=== PATIENT | female | born 1945 | race Caucasian/White ===

== ENCOUNTER 2017-05-26 12:24 | Inpatient (IN) | payer MEDICARE, MEDICAID ==
[~2017-05-26] VITALS: Ht 165.1 cm; Wt 88.6 kg
[2017-05-26] MEDS ORDERED: ipratropium/albuterol 3ml nebule NEB ONE (12:40)
[2017-05-26] MEDS ORDERED: normal saline 1000ML IV soln IV ONE (12:40)
[2017-05-26 13:18] LABS: BASOPHILS % (AUTO) 0.1 % (0-1); EOSINOPHILS % (AUTO) 0 % (0-6); HEMATOCRIT 38.1 % (35.0-45.0); HEMOGLOBIN 13.1 g/dl (12.0-16.0); LYMPHOCYTES # (AUTO) 1.3 X10'3 (1.1-4.8); LYMPHOCYTES % (AUTO) 11.3 % (21-51); MEAN CORPUSCULAR HEMOGLOBIN 28.7 PG (27.0-31.0); MEAN CORPUSCULAR HGB CONC 34.3 % (33.0-36.5); MEAN CORPUSCULAR VOLUME 83.5 FL (78-98); MONOCYTES # (AUTO) 0.5 X10'3 (0-0.9); MONOCYTES % (AUTO) 4.6 % (2-12); NEUTROPHILS # (AUTO) 9.4 X10'3 (1.8-7.7); PLATELET COUNT 280 X10'3 (140-440); RED BLOOD COUNT 4.56 X10'6 (4.20-5.60); RED CELL DISTRIBUTION WIDTH 13.7 % (11.5-14.5); WHITE BLOOD COUNT 11.2 X10'3 (4.5-11.0)
[2017-05-26] MEDS ORDERED: CefTRIAXone 2gm/NS 100ml IVPB 100 ML IV ONE (13:25)
[2017-05-26] MEDS ORDERED: LORazepam 2 mg/ml vial IV ONE (13:35)
[2017-05-26 13:43] LABS: ALANINE AMINOTRANSFERASE 16 U/L (12-78); ALBUMIN 3.8 G/DL (3.4-5.0); ALKALINE PHOSPHATASE 57 IU/L (46-116); ANION GAP 10 (8-16); ASPARTATE AMINO TRANSFERASE 16 U/L (10-37); BILIRUBIN,TOTAL 0.4 MG/DL (0.1-1.0); BLOOD UREA NITROGEN 14 MG/DL (7-18); BUN/CREATININE RATIO 16.9 (6.6-38.0); CHLORIDE 100 MMOL/L (99-107); CREATININE 0.83 MG/DL (0.40-0.90); GLUCOSE 131 MG/DL (70-104); POTASSIUM 4.1 MMOL/L (3.5-5.1); SODIUM 139 MMOL/L (135-145); TOTAL CARBON DIOXIDE 28.8 MMOL/L (24-32); TOTAL PROTEIN 7.5 G/DL (6.4-8.2); eGFR 68 ML/MIN
[2017-05-26 14:11] LABS: ABG BASE EXCESS -2.8 mmol/L (-2.0-3.0); ABG HCO3 22.5 mmol/L (22.0-26.0); ABG OXYGEN SATURATION 94.7 % (95-98); ABG PCO2 (T) 40.9 mmHg (32.0-45.0); ABG PH (T) 7.358 (7.350-7.450); ABG PO2 (T) 78.5 mmHg (83-108); ALLEN'S TEST Negative; FCOHb 0.2 % (0.5-1.5); FLOW 3 L/min; FMetHb 0.1 % (0.3-1.12); FO2Hb 94.4 % (94-100)
[2017-05-26] MEDS ORDERED: ondansetron/PF 4mg/2ml inj IV PRN (14:25)
[2017-05-26] MEDS ORDERED: magnesium hydroxide 30ml (MOM) UD suspension PO PRN (14:25)
[2017-05-26] MEDS ORDERED: acetaminophen 325mg tablet PO PRN (14:25)
[2017-05-26] MEDS ORDERED: mag hydrox/Alum hydrox/simeth 30ml oral suspension PO PRN (14:25)
[2017-05-26 17:00] VITALS: BP 146/71
[2017-05-26] MEDS ORDERED: LORazepam 2 mg/ml vial IV PRN (17:20)
[2017-05-26 18:04] LABS: HEMOGLOBIN A1C 5.5 % (4.5-6.2)
[2017-05-26 19:00] VITALS: BP 142/93
[2017-05-26] MEDS: ipratropium/albuterol 3ml nebule NEB SCH ×2 (20:27→23:31)
[2017-05-26] MEDS ORDERED: ATOR10TA PO (20:29)
[2017-05-26] MEDS ORDERED: METF500T PO (20:29)
[2017-05-26] MEDS ORDERED: SERT50TA PO (20:29)
[2017-05-26] MEDS ORDERED: SERT25TA PO (20:29)
[2017-05-26] MEDS ORDERED: LORA10TA65 PO (20:29)
[2017-05-26] MEDS ORDERED: AMLO5TAB4 PO (20:29)
[2017-05-26] MEDS ORDERED: ENAL5TAB77 PO (20:29)
[2017-05-26] MEDS: heparin, porcine 5000 units/ml vial SQ SCH (21:25)
[2017-05-26] MEDS: methylPREDNISolone sod succ 125mg/2ml vial IV SCH (21:25)
[2017-05-26 23:00] VITALS: BP 146/63
[2017-05-27] MEDS: methylPREDNISolone sod succ 125mg/2ml vial IV SCH ×4 (01:51→19:18)
[2017-05-27 03:00] VITALS: BP 147/76
[2017-05-27] MEDS: ipratropium/albuterol 3ml nebule NEB SCH ×6 (03:30→23:34)
[2017-05-27 06:00] VITALS: BP 139/70
[2017-05-27 07:08] LABS: BASOPHILS % (AUTO) 0.1 % (0-1); EOSINOPHILS % (AUTO) 0 % (0-6); HEMATOCRIT 34.7 % (35.0-45.0); HEMOGLOBIN 11.8 g/dl (12.0-16.0); LYMPHOCYTES # (AUTO) 0.5 X10'3 (1.1-4.8); LYMPHOCYTES % (AUTO) 7.9 % (21-51); MEAN CORPUSCULAR HEMOGLOBIN 28.6 PG (27.0-31.0); MEAN CORPUSCULAR HGB CONC 33.9 % (33.0-36.5); MEAN CORPUSCULAR VOLUME 84.2 FL (78-98); MEAN PLATELET VOLUME 7.5 FL (7.4-10.4); MONOCYTES % (AUTO) 0.4 % (2-12); NEUTROPHILS # (AUTO) 5.9 X10'3 (1.8-7.7); NEUTROPHILS % (AUTO) 91.6 % (42-75); PLATELET COUNT 252 X10'3 (140-440); RED BLOOD COUNT 4.12 X10'6 (4.20-5.60); RED CELL DISTRIBUTION WIDTH 13.5 % (11.5-14.5); WHITE BLOOD COUNT 6.4 X10'3 (4.5-11.0)
[2017-05-27 07:13] LABS: ALBUMIN 3.2 G/DL (3.4-5.0); ANION GAP 12 (8-16); BLOOD UREA NITROGEN 11 MG/DL (7-18); BUN/CREATININE RATIO 14.9 (6.6-38.0); CALCIUM 8.3 MG/DL (8.5-10.1); CHLORIDE 104 MMOL/L (99-107); CREATININE 0.74 MG/DL (0.40-0.90); GLUCOSE 208 MG/DL (70-104); POTASSIUM 3.7 MMOL/L (3.5-5.1); SODIUM 142 MMOL/L (135-145); TOTAL CARBON DIOXIDE 26.2 MMOL/L (24-32); eGFR 78 ML/MIN
[2017-05-27] MEDS ORDERED: dextrose 50%-water 50ml dispensing syringe IV PRN (07:55)
[2017-05-27] MEDS ORDERED: dextrose ORAL solution 15 GM/59 ML bottle PO PRN ×2 (07:55)
[2017-05-27] MEDS ORDERED: glucagon, human recombinant 1mg kit SUBCUT PRN (07:55)
[2017-05-27] MEDS ORDERED: MESSAGE TO PHARMACY PO ONE (07:55)
[2017-05-27] MEDS: heparin, porcine 5000 units/ml vial SQ SCH ×2 (08:11→19:19)
[2017-05-27] MEDS: levoFLOXACIN-Levaquin 500mg/D5 100 ML IV SCH (08:32)
[2017-05-27] MEDS: insulin Lispro (HumaLOG) vial - multi-dose SQ SCH ×3 (08:52→19:11)
[2017-05-27 11:00] VITALS: BP 135/53
[2017-05-27] MEDS: sertraline 50mg tablet PO SCH (12:44)
[2017-05-27] MEDS: metFORMIN 500mg tablet PO SCH ×2 (12:44→17:59)
[2017-05-27] MEDS: HYDROcodone/acetaminophen 5mg/325mg tablet PO PRN (13:15)
[2017-05-27 15:00] VITALS: BP 133/76
[2017-05-27] MEDS: lactobacillus rhamnosus 10,000 MMU CELLS/CAPSULE PO SCH (17:18)
[2017-05-27 19:00] VITALS: BP 145/90
[2017-05-27 23:00] VITALS: BP 143/65
[2017-05-27] MEDS: insulin glargine (Lantus) pen - multi-dose SQ SCH (23:27)
[2017-05-28] MEDS: methylPREDNISolone sod succ 125mg/2ml vial IV SCH ×4 (02:31→21:37)
[2017-05-28 03:00] VITALS: BP 147/78
[2017-05-28] MEDS: ipratropium/albuterol 3ml nebule NEB SCH ×6 (03:21→22:46)
[2017-05-28 05:34] LABS: BASOPHILS % (AUTO) 0.1 % (0-1); EOSINOPHILS # (AUTO) 0.2 X10'3 (0-0.9); EOSINOPHILS % (AUTO) 1.1 % (0-6); HEMATOCRIT 36.8 % (35.0-45.0); HEMOGLOBIN 12.8 g/dl (12.0-16.0); LYMPHOCYTES # (AUTO) 0.7 X10'3 (1.1-4.8); LYMPHOCYTES % (AUTO) 5.3 % (21-51); MEAN CORPUSCULAR HGB CONC 34.7 % (33.0-36.5); MEAN CORPUSCULAR VOLUME 83.7 FL (78-98); MEAN PLATELET VOLUME 7.6 FL (7.4-10.4); MONOCYTES # (AUTO) 0.4 X10'3 (0-0.9); MONOCYTES % (AUTO) 3.2 % (2-12); NEUTROPHILS # (AUTO) 12.6 X10'3 (1.8-7.7); NEUTROPHILS % (AUTO) 90.3 % (42-75); PLATELET COUNT 278 X10'3 (140-440); RED CELL DISTRIBUTION WIDTH 13.6 % (11.5-14.5); WHITE BLOOD COUNT 13.9 X10'3 (4.5-11.0)
[2017-05-28 05:43] LABS: ALBUMIN 3.3 G/DL (3.4-5.0); ANION GAP 10 (8-16); BLOOD UREA NITROGEN 15 MG/DL (7-18); BUN/CREATININE RATIO 20.3 (6.6-38.0); CALCIUM 8.8 MG/DL (8.5-10.1); CHLORIDE 103 MMOL/L (99-107); CREATININE 0.74 MG/DL (0.40-0.90); GLUCOSE 171 MG/DL (70-104); POTASSIUM 3.7 MMOL/L (3.5-5.1); SODIUM 142 MMOL/L (135-145); TOTAL CARBON DIOXIDE 29.2 MMOL/L (24-32); eGFR 78 ML/MIN
[2017-05-28 06:00] VITALS: BP 145/63
[2017-05-28] MEDS: heparin, porcine 5000 units/ml vial SQ SCH ×2 (07:50→20:00)
[2017-05-28] MEDS: sertraline 50mg tablet PO SCH (07:51)
[2017-05-28] MEDS: levoFLOXACIN-Levaquin 500mg/D5 100 ML IV SCH (07:51)
[2017-05-28] MEDS: lactobacillus rhamnosus 10,000 MMU CELLS/CAPSULE PO SCH ×2 (07:51→17:08)
[2017-05-28] MEDS: atorvastatin 10mg tablet PO SCH (07:51)
[2017-05-28] MEDS: lisinopril 5mg tablet PO SCH (07:51)
[2017-05-28] MEDS: amLODIPine 5mg tablet PO SCH (07:51)
[2017-05-28] MEDS: loratadine 10mg tablet PO SCH (07:53)
[2017-05-28] MEDS: metFORMIN 500mg tablet PO SCH ×3 (08:00→17:48)
[2017-05-28] MEDS ORDERED: sertraline 50mg tablet PO SCH (08:00)
[2017-05-28] MEDS: insulin Lispro (HumaLOG) vial - multi-dose SQ SCH ×3 (08:38→21:52)
[2017-05-28 11:00] VITALS: BP 133/71
[2017-05-28] MEDS: HYDROcodone/acetaminophen 5mg/325mg tablet PO PRN ×2 (14:18→21:58)
[2017-05-28 15:00] VITALS: BP 145/71
[2017-05-28 19:00] VITALS: BP 150/72
[2017-05-28] MEDS: insulin glargine (Lantus) pen - multi-dose SQ SCH (21:51)
[2017-05-28 23:00] VITALS: BP 131/76
[2017-05-29] MEDS: Melatonin 3mg tablet PO PRN ×2 (01:59→22:21)
[2017-05-29] MEDS: methylPREDNISolone sod succ 125mg/2ml vial IV SCH ×4 (01:59→19:31)
[2017-05-29 03:00] VITALS: BP 137/65
[2017-05-29] MEDS: ipratropium/albuterol 3ml nebule NEB SCH ×6 (03:24→23:13)
[2017-05-29 05:21] LABS: BASOPHILS % (AUTO) 0 % (0-1); EOSINOPHILS % (AUTO) 0 % (0-6); HEMATOCRIT 35.4 % (35.0-45.0); HEMOGLOBIN 12.3 g/dl (12.0-16.0); LYMPHOCYTES # (AUTO) 0.6 X10'3 (1.1-4.8); LYMPHOCYTES % (AUTO) 5.9 % (21-51); MEAN CORPUSCULAR HGB CONC 34.7 % (33.0-36.5); MEAN CORPUSCULAR VOLUME 83.7 FL (78-98); MEAN PLATELET VOLUME 7.7 FL (7.4-10.4); MONOCYTES % (AUTO) 0.4 % (2-12); NEUTROPHILS # (AUTO) 9.6 X10'3 (1.8-7.7); NEUTROPHILS % (AUTO) 93.7 % (42-75); PLATELET COUNT 307 X10'3 (140-440); RED BLOOD COUNT 4.23 X10'6 (4.20-5.60); RED CELL DISTRIBUTION WIDTH 13.5 % (11.5-14.5); WHITE BLOOD COUNT 10.2 X10'3 (4.5-11.0)
[2017-05-29 05:35] LABS: ALBUMIN 3.1 G/DL (3.4-5.0); ANION GAP 11 (8-16); BLOOD UREA NITROGEN 19 MG/DL (7-18); BUN/CREATININE RATIO 23.2 (6.6-38.0); CALCIUM 8.5 MG/DL (8.5-10.1); CHLORIDE 102 MMOL/L (99-107); CREATININE 0.82 MG/DL (0.40-0.90); GLUCOSE 217 MG/DL (70-104); POTASSIUM 3.3 MMOL/L (3.5-5.1); SODIUM 141 MMOL/L (135-145); TOTAL CARBON DIOXIDE 27.8 MMOL/L (24-32); eGFR 69 ML/MIN
[2017-05-29 06:00] VITALS: BP 126/55
[2017-05-29] MEDS: lactobacillus rhamnosus 10,000 MMU CELLS/CAPSULE PO SCH ×2 (07:47→16:53)
[2017-05-29] MEDS: amLODIPine 5mg tablet PO SCH (07:47)
[2017-05-29] MEDS: atorvastatin 10mg tablet PO SCH (07:47)
[2017-05-29] MEDS: sertraline 50mg tablet PO SCH (07:48)
[2017-05-29] MEDS: metFORMIN 500mg tablet PO SCH (07:48)
[2017-05-29] MEDS: lisinopril 5mg tablet PO SCH (07:48)
[2017-05-29] MEDS: loratadine 10mg tablet PO SCH (07:48)
[2017-05-29] MEDS: HYDROcodone/acetaminophen 5mg/325mg tablet PO PRN ×2 (07:50→17:06)
[2017-05-29] MEDS: levoFLOXACIN-Levaquin 500mg/D5 100 ML IV SCH (07:50)
[2017-05-29] MEDS: heparin, porcine 5000 units/ml vial SQ SCH ×2 (07:51→19:30)
[2017-05-29 11:30] VITALS: BP 124/53
[2017-05-29] MEDS: insulin Lispro (HumaLOG) vial - multi-dose SQ SCH ×2 (14:11→19:34)
[2017-05-29 15:00] VITALS: BP 141/99
[2017-05-29 19:00] VITALS: BP 103/64
[2017-05-29] MEDS: guaiFENesin ER 600mg tablet PO SCH (19:30)
[2017-05-29] MEDS: furosemide 20 MG/2 ML vial IV SCH (19:31)
[2017-05-29 22:00] VITALS: BP 138/72
[2017-05-29] MEDS: insulin glargine (Lantus) pen - multi-dose SQ SCH (22:20)
[2017-05-30] VITALS (7 sets, daily range): BP systolic 104–151; BP diastolic 45–84
[2017-05-30] MEDS: methylPREDNISolone sod succ 125mg/2ml vial IV SCH ×2 (01:48→08:03)
[2017-05-30] MEDS: ipratropium/albuterol 3ml nebule NEB SCH ×6 (03:09→22:55)
[2017-05-30 05:56] LABS: BASOPHILS # (AUTO) 0.1 X10'3 (0-0.2); BASOPHILS % (AUTO) 1.4 % (0-1); EOSINOPHILS % (AUTO) 0.1 % (0-6); HEMATOCRIT 37.8 % (35.0-45.0); HEMOGLOBIN 12.9 g/dl (12.0-16.0); LYMPHOCYTES # (AUTO) 0.7 X10'3 (1.1-4.8); LYMPHOCYTES % (AUTO) 7.4 % (21-51); MEAN CORPUSCULAR HEMOGLOBIN 28.6 PG (27.0-31.0); MEAN CORPUSCULAR HGB CONC 34.1 % (33.0-36.5); MEAN PLATELET VOLUME 7.9 FL (7.4-10.4); MONOCYTES # (AUTO) 0.4 X10'3 (0-0.9); MONOCYTES % (AUTO) 4.4 % (2-12); NEUTROPHILS # (AUTO) 8.4 X10'3 (1.8-7.7); NEUTROPHILS % (AUTO) 86.7 % (42-75); PLATELET COUNT 328 X10'3 (140-440); RED CELL DISTRIBUTION WIDTH 13.3 % (11.5-14.5); WHITE BLOOD COUNT 9.7 X10'3 (4.5-11.0)
[2017-05-30 06:35] LABS: ALBUMIN 3.1 G/DL (3.4-5.0); ANION GAP 11 (8-16); BLOOD UREA NITROGEN 26 MG/DL (7-18); BUN/CREATININE RATIO 29.5 (6.6-38.0); CALCIUM 8.8 MG/DL (8.5-10.1); CHLORIDE 102 MMOL/L (99-107); CREATININE 0.88 MG/DL (0.40-0.90); GLUCOSE 151 MG/DL (70-104); POTASSIUM 3.2 MMOL/L (3.5-5.1); SODIUM 142 MMOL/L (135-145); TOTAL CARBON DIOXIDE 28.8 MMOL/L (24-32); eGFR 64 ML/MIN
[2017-05-30] MEDS: loratadine 10mg tablet PO SCH (08:01)
[2017-05-30] MEDS: guaiFENesin ER 600mg tablet PO SCH (08:01)
[2017-05-30] MEDS: amLODIPine 5mg tablet PO SCH (08:01)
[2017-05-30] MEDS: atorvastatin 10mg tablet PO SCH (08:01)
[2017-05-30] MEDS: lactobacillus rhamnosus 10,000 MMU CELLS/CAPSULE PO SCH ×2 (08:02→17:15)
[2017-05-30] MEDS: sertraline 50mg tablet PO SCH (08:02)
[2017-05-30] MEDS: furosemide 20 MG/2 ML vial IV SCH (08:02)
[2017-05-30] MEDS: heparin, porcine 5000 units/ml vial SQ SCH ×2 (08:04→19:22)
[2017-05-30] MEDS: insulin Lispro (HumaLOG) vial - multi-dose SQ SCH ×3 (08:39→18:48)
[2017-05-30] MEDS: levoFLOXACIN 500mg tablet PO SCH (12:21)
[2017-05-30] MEDS ORDERED: metoprolol tartrate 1mg/ml inj IV PRN (16:35)
[2017-05-30] MEDS ORDERED: morphine 4 MG/ML inj SYRINge IV ONE (16:35)
[2017-05-30] MEDS ORDERED: diltiazem 5mg/ml 5ml inj. IV ONE (16:35)
[2017-05-30] MEDS ORDERED: methylPREDNISolone sod succ 125mg/2ml vial IV ONE (18:05)
[2017-05-30] MEDS: guaiFENesin/codeine phos 10ml UD oral syrup PO PRN ×2 (18:49→22:59)
[2017-05-30] MEDS: HYDROcodone/acetaminophen 5mg/325mg tablet PO PRN (19:27)
[2017-05-30] MEDS: insulin glargine (Lantus) pen - multi-dose SQ SCH (21:08)
[2017-05-30] MEDS: Melatonin 3mg tablet PO PRN (22:59)
[2017-05-31 02:00] VITALS: BP 131/67
[2017-05-31] MEDS: ipratropium/albuterol 3ml nebule NEB SCH ×6 (03:24→23:11)
[2017-05-31 06:00] VITALS: BP 131/70
[2017-05-31 06:04] LABS: BASOPHILS # (AUTO) 0.1 X10'3 (0-0.2); BASOPHILS % (AUTO) 0.7 % (0-1); EOSINOPHILS % (AUTO) 0.1 % (0-6); HEMATOCRIT 36.8 % (35.0-45.0); HEMOGLOBIN 12.8 g/dl (12.0-16.0); LYMPHOCYTES # (AUTO) 0.9 X10'3 (1.1-4.8); LYMPHOCYTES % (AUTO) 8.9 % (21-51); MEAN CORPUSCULAR HEMOGLOBIN 29.1 PG (27.0-31.0); MEAN CORPUSCULAR HGB CONC 34.7 % (33.0-36.5); MEAN CORPUSCULAR VOLUME 83.7 FL (78-98); MEAN PLATELET VOLUME 7.9 FL (7.4-10.4); MONOCYTES # (AUTO) 0.8 X10'3 (0-0.9); MONOCYTES % (AUTO) 7.4 % (2-12); NEUTROPHILS # (AUTO) 8.7 X10'3 (1.8-7.7); NEUTROPHILS % (AUTO) 82.9 % (42-75); PLATELET COUNT 290 X10'3 (140-440); RED BLOOD COUNT 4.39 X10'6 (4.20-5.60); RED CELL DISTRIBUTION WIDTH 13.4 % (11.5-14.5); WHITE BLOOD COUNT 10.5 X10'3 (4.5-11.0)
[2017-05-31 06:14] LABS: ANION GAP 11 (8-16); BLOOD UREA NITROGEN 29 MG/DL (7-18); BUN/CREATININE RATIO 29.9 (6.6-38.0); CALCIUM 8.6 MG/DL (8.5-10.1); CHLORIDE 101 MMOL/L (99-107); CREATININE 0.97 MG/DL (0.40-0.90); GLUCOSE 176 MG/DL (70-104); POTASSIUM 3.7 MMOL/L (3.5-5.1); SODIUM 140 MMOL/L (135-145); TOTAL CARBON DIOXIDE 28.3 MMOL/L (24-32); eGFR 57 ML/MIN
[2017-05-31] MEDS ORDERED: methylPREDNISolone sod succ 125mg/2ml vial IV ONE (07:50)
[2017-05-31] MEDS ORDERED: predniSONE 20 mg tablet PO SCH (08:00)
[2017-05-31] MEDS: lactobacillus rhamnosus 10,000 MMU CELLS/CAPSULE PO SCH ×2 (08:28→17:57)
[2017-05-31] MEDS: atorvastatin 10mg tablet PO SCH (08:29)
[2017-05-31] MEDS: furosemide 40mg tablet PO SCH (08:29)
[2017-05-31] MEDS: amLODIPine 5mg tablet PO SCH (08:29)
[2017-05-31] MEDS: loratadine 10mg tablet PO SCH (08:29)
[2017-05-31] MEDS: sertraline 50mg tablet PO SCH (08:30)
[2017-05-31] MEDS: HYDROcodone/acetaminophen 5mg/325mg tablet PO PRN (08:30)
[2017-05-31] MEDS: heparin, porcine 5000 units/ml vial SQ SCH ×2 (08:30→19:59)
[2017-05-31] MEDS: guaiFENesin/codeine phos 10ml UD oral syrup PO PRN ×2 (08:31→22:48)
[2017-05-31] MEDS: insulin Lispro (HumaLOG) vial - multi-dose SQ SCH ×3 (08:42→19:50)
[2017-05-31] MEDS ORDERED: ALPRAZolam 0.25mg tablet PO PRN (08:50)
[2017-05-31] MEDS ORDERED: acetylcysteine 200 MG/ml 4ml vial INH ONE ×2 (08:50→10:40)
[2017-05-31] MEDS: morphine 4 MG/ML inj SYRINge IV PRN ×3 (09:31→23:08)
[2017-05-31 11:00] VITALS: BP 128/55
[2017-05-31] MEDS: levoFLOXACIN 500mg tablet PO SCH (11:19)
[2017-05-31] MEDS: methylPREDNISolone sod succ/PF 40mg inj. IV SCH ×2 (13:36→19:57)
[2017-05-31 15:00] VITALS: BP 127/59
[2017-05-31 18:00] VITALS: BP 126/55
[2017-05-31 22:00] VITALS: BP 152/84
[2017-05-31] MEDS: insulin glargine (Lantus) pen - multi-dose SQ SCH (23:07)
[2017-05-31] MEDS: Melatonin 3mg tablet PO PRN (23:07)
[2017-06-01 02:00] VITALS: BP 139/79
[2017-06-01] MEDS: methylPREDNISolone sod succ/PF 40mg inj. IV SCH ×4 (02:54→19:20)
[2017-06-01] MEDS: ipratropium/albuterol 3ml nebule NEB SCH ×6 (03:15→23:22)
[2017-06-01 06:00] VITALS: BP 144/79
[2017-06-01] MEDS: lactobacillus rhamnosus 10,000 MMU CELLS/CAPSULE PO SCH ×2 (08:25→17:22)
[2017-06-01] MEDS: atorvastatin 10mg tablet PO SCH (08:25)
[2017-06-01] MEDS: loratadine 10mg tablet PO SCH (08:27)
[2017-06-01] MEDS: amLODIPine 5mg tablet PO SCH (08:27)
[2017-06-01] MEDS: heparin, porcine 5000 units/ml vial SQ SCH ×2 (08:27→19:21)
[2017-06-01] MEDS: furosemide 40mg tablet PO SCH (08:28)
[2017-06-01] MEDS: insulin Lispro (HumaLOG) vial - multi-dose SQ SCH ×3 (08:33→21:44)
[2017-06-01] MEDS: sertraline 50mg tablet PO SCH (08:34)
[2017-06-01 09:14] LABS: BASOPHILS # (AUTO) 0.1 X10'3 (0-0.2); BASOPHILS % (AUTO) 0.7 % (0-1); EOSINOPHILS % (AUTO) 0 % (0-6); HEMATOCRIT 38.1 % (35.0-45.0); HEMOGLOBIN 12.7 g/dl (12.0-16.0); LYMPHOCYTES # (AUTO) 0.8 X10'3 (1.1-4.8); LYMPHOCYTES % (AUTO) 6.4 % (21-51); MEAN CORPUSCULAR HEMOGLOBIN 28.5 PG (27.0-31.0); MEAN CORPUSCULAR HGB CONC 33.5 % (33.0-36.5); MEAN CORPUSCULAR VOLUME 85.1 FL (78-98); MONOCYTES # (AUTO) 0.6 X10'3 (0-0.9); MONOCYTES % (AUTO) 4.8 % (2-12); NEUTROPHILS # (AUTO) 11.3 X10'3 (1.8-7.7); NEUTROPHILS % (AUTO) 88.1 % (42-75); PLATELET COUNT 363 X10'3 (140-440); RED BLOOD COUNT 4.47 X10'6 (4.20-5.60); RED CELL DISTRIBUTION WIDTH 13.5 % (11.5-14.5); WHITE BLOOD COUNT 12.8 X10'3 (4.5-11.0)
[2017-06-01 09:22] LABS: ALBUMIN 2.9 G/DL (3.4-5.0); ANION GAP 10 (8-16); BLOOD UREA NITROGEN 31 MG/DL (7-18); BUN/CREATININE RATIO 28.4 (6.6-38.0); CALCIUM 8.4 MG/DL (8.5-10.1); CHLORIDE 99 MMOL/L (99-107); CREATININE 1.09 MG/DL (0.40-0.90); GLUCOSE 290 MG/DL (70-104); POTASSIUM 4.3 MMOL/L (3.5-5.1); SODIUM 137 MMOL/L (135-145); TOTAL CARBON DIOXIDE 28.3 MMOL/L (24-32); eGFR 50 ML/MIN
[2017-06-01] MEDS: morphine 4 MG/ML inj SYRINge IV PRN ×2 (10:27→19:21)
[2017-06-01 11:00] VITALS: BP 123/79
[2017-06-01] MEDS: levoFLOXACIN 500mg tablet PO SCH (12:45)
[2017-06-01 15:00] VITALS: BP 139/64
[2017-06-01 18:00] VITALS: BP 143/75
[2017-06-01] MEDS: insulin glargine (Lantus) pen - multi-dose SQ SCH (21:45)
[2017-06-01 22:00] VITALS: BP 157/80
[2017-06-01] MEDS: guaiFENesin/codeine phos 10ml UD oral syrup PO PRN (23:06)
[2017-06-01] MEDS: Melatonin 3mg tablet PO PRN (23:06)
[2017-06-01] MEDS: HYDROcodone/acetaminophen 5mg/325mg tablet PO PRN (23:07)
[2017-06-02 02:00] VITALS: BP 143/80
[2017-06-02] MEDS: methylPREDNISolone sod succ/PF 40mg inj. IV SCH ×4 (02:22→20:13)
[2017-06-02] MEDS: ipratropium/albuterol 3ml nebule NEB SCH ×6 (02:46→23:24)
[2017-06-02 05:48] LABS: BASOPHILS # (AUTO) 0.1 X10'3 (0-0.2); BASOPHILS % (AUTO) 0.4 % (0-1); EOSINOPHILS % (AUTO) 0 % (0-6); HEMATOCRIT 37.6 % (35.0-45.0); HEMOGLOBIN 12.7 g/dl (12.0-16.0); LYMPHOCYTES # (AUTO) 0.9 X10'3 (1.1-4.8); MEAN CORPUSCULAR HEMOGLOBIN 28.6 PG (27.0-31.0); MEAN CORPUSCULAR HGB CONC 33.7 % (33.0-36.5); MEAN CORPUSCULAR VOLUME 84.7 FL (78-98); MEAN PLATELET VOLUME 7.4 FL (7.4-10.4); MONOCYTES # (AUTO) 0.6 X10'3 (0-0.9); MONOCYTES % (AUTO) 4.2 % (2-12); NEUTROPHILS # (AUTO) 13.4 X10'3 (1.8-7.7); NEUTROPHILS % (AUTO) 89.4 % (42-75); PLATELET COUNT 377 X10'3 (140-440); RED BLOOD COUNT 4.44 X10'6 (4.20-5.60); RED CELL DISTRIBUTION WIDTH 13.4 % (11.5-14.5); WHITE BLOOD COUNT 14.9 X10'3 (4.5-11.0)
[2017-06-02 06:00] VITALS: BP 152/56
[2017-06-02 06:01] LABS: ANION GAP 8 (8-16); BLOOD UREA NITROGEN 26 MG/DL (7-18); BUN/CREATININE RATIO 32.1 (6.6-38.0); CALCIUM 8.5 MG/DL (8.5-10.1); CHLORIDE 102 MMOL/L (99-107); CREATININE 0.81 MG/DL (0.40-0.90); GLUCOSE 108 MG/DL (70-104); POTASSIUM 3.9 MMOL/L (3.5-5.1); SODIUM 141 MMOL/L (135-145); TOTAL CARBON DIOXIDE 31.4 MMOL/L (24-32); eGFR 70 ML/MIN
[2017-06-02] MEDS: atorvastatin 10mg tablet PO SCH (07:28)
[2017-06-02] MEDS: sertraline 50mg tablet PO SCH (07:28)
[2017-06-02] MEDS: loratadine 10mg tablet PO SCH (07:28)
[2017-06-02] MEDS: lactobacillus rhamnosus 10,000 MMU CELLS/CAPSULE PO SCH ×2 (07:28→16:21)
[2017-06-02] MEDS: heparin, porcine 5000 units/ml vial SQ SCH ×2 (07:28→20:17)
[2017-06-02] MEDS: amLODIPine 5mg tablet PO SCH (07:28)
[2017-06-02] MEDS: furosemide 40mg tablet PO SCH ×3 (07:28→20:17)
[2017-06-02] MEDS: HYDROcodone/acetaminophen 5mg/325mg tablet PO PRN ×4 (07:31→21:22)
[2017-06-02 08:17] LABS: TROPONIN I < 0.04 NG/ML (0.0-0.05)
[2017-06-02] MEDS: insulin Lispro (HumaLOG) vial - multi-dose SQ SCH ×3 (08:24→19:17)
[2017-06-02] MEDS: levoFLOXACIN 500mg tablet PO SCH (11:30)
[2017-06-02 11:55] VITALS: BP 118/88
[2017-06-02 15:00] VITALS: BP 118/70
[2017-06-02 18:00] VITALS: BP 119/59
[2017-06-02] MEDS: Melatonin 3mg tablet PO PRN (21:22)
[2017-06-02] MEDS: guaiFENesin/codeine phos 10ml UD oral syrup PO PRN (21:22)
[2017-06-02] MEDS: insulin glargine (Lantus) pen - multi-dose SQ SCH (21:30)
[2017-06-02 22:00] VITALS: BP 163/76
[2017-06-03] VITALS (7 sets, daily range): BP systolic 69–145; BP diastolic 50–76
[2017-06-03] MEDS: methylPREDNISolone sod succ/PF 40mg inj. IV SCH ×3 (01:56→14:02)
[2017-06-03] MEDS: guaiFENesin/codeine phos 10ml UD oral syrup PO PRN ×2 (01:56→16:08)
[2017-06-03] MEDS: ipratropium/albuterol 3ml nebule NEB SCH ×4 (02:55→14:03)
[2017-06-03] MEDS: morphine 4 MG/ML inj SYRINge IV PRN ×2 (03:15→16:10)
[2017-06-03 03:38] LABS: BASOPHILS % (AUTO) 0.2 % (0-1); EOSINOPHILS # (AUTO) 0.3 X10'3 (0-0.9); EOSINOPHILS % (AUTO) 1.6 % (0-6); HEMATOCRIT 38.9 % (35.0-45.0); HEMOGLOBIN 13.4 g/dl (12.0-16.0); LYMPHOCYTES # (AUTO) 0.9 X10'3 (1.1-4.8); LYMPHOCYTES % (AUTO) 5.4 % (21-51); MEAN CORPUSCULAR HEMOGLOBIN 29.1 PG (27.0-31.0); MEAN CORPUSCULAR HGB CONC 34.5 % (33.0-36.5); MEAN CORPUSCULAR VOLUME 84.3 FL (78-98); MEAN PLATELET VOLUME 7.3 FL (7.4-10.4); MONOCYTES # (AUTO) 0.7 X10'3 (0-0.9); MONOCYTES % (AUTO) 4.5 % (2-12); NEUTROPHILS # (AUTO) 14.1 X10'3 (1.8-7.7); NEUTROPHILS % (AUTO) 88.3 % (42-75); PLATELET COUNT 384 X10'3 (140-440); RED BLOOD COUNT 4.61 X10'6 (4.20-5.60); RED CELL DISTRIBUTION WIDTH 13.7 % (11.5-14.5); WHITE BLOOD COUNT 15.9 X10'3 (4.5-11.0)
[2017-06-03 03:58] LABS: ANION GAP 9 (8-16); BLOOD UREA NITROGEN 33 MG/DL (7-18); CALCIUM 8.3 MG/DL (8.5-10.1); CHLORIDE 99 MMOL/L (99-107); CREATININE 1.03 MG/DL (0.40-0.90); GLUCOSE 152 MG/DL (70-104); POTASSIUM 3.6 MMOL/L (3.5-5.1); SODIUM 140 MMOL/L (135-145); TOTAL CARBON DIOXIDE 32.5 MMOL/L (24-32); TROPONIN I < 0.04 NG/ML (0.0-0.05); eGFR 53 ML/MIN
[2017-06-03] MEDS: insulin Lispro (HumaLOG) vial - multi-dose SQ SCH ×3 (08:40→19:26)
[2017-06-03] MEDS: atorvastatin 10mg tablet PO SCH (08:41)
[2017-06-03] MEDS: amLODIPine 5mg tablet PO SCH (08:41)
[2017-06-03] MEDS: lactobacillus rhamnosus 10,000 MMU CELLS/CAPSULE PO SCH ×2 (08:42→19:17)
[2017-06-03] MEDS: sertraline 50mg tablet PO SCH (08:42)
[2017-06-03] MEDS: furosemide 40mg tablet PO SCH ×2 (08:42→19:15)
[2017-06-03] MEDS: heparin, porcine 5000 units/ml vial SQ SCH ×2 (08:42→19:16)
[2017-06-03] MEDS: loratadine 10mg tablet PO SCH (08:42)
[2017-06-03] MEDS: HYDROcodone/acetaminophen 5mg/325mg tablet PO PRN ×3 (09:03→23:46)
[2017-06-03] MEDS: levoFLOXACIN 500mg tablet PO SCH (11:42)
[2017-06-03] MEDS ORDERED: furosemide 40mg/4ml inj IV ONE (18:30)
[2017-06-03] MEDS: guaiFENesin ER 600mg tablet PO SCH (19:18)
[2017-06-03] MEDS: ipratropium/albuterol 3ml nebule NEB PRN (20:06)
[2017-06-03] MEDS: insulin glargine (Lantus) pen - multi-dose SQ SCH (21:00)
[2017-06-03] MEDS: Melatonin 3mg tablet PO PRN (23:45)
[2017-06-04] MEDS: ipratropium/albuterol 3ml nebule NEB PRN ×2 (02:31→21:10)
[2017-06-04 03:00] VITALS: BP 154/61
[2017-06-04 05:52] LABS: BASOPHILS % (AUTO) 0.2 % (0-1); EOSINOPHILS # (AUTO) 0.3 X10'3 (0-0.9); EOSINOPHILS % (AUTO) 1.8 % (0-6); HEMOGLOBIN 13.4 g/dl (12.0-16.0); LYMPHOCYTES # (AUTO) 1.4 X10'3 (1.1-4.8); LYMPHOCYTES % (AUTO) 9.1 % (21-51); MEAN CORPUSCULAR HEMOGLOBIN 28.9 PG (27.0-31.0); MEAN CORPUSCULAR HGB CONC 34.3 % (33.0-36.5); MEAN CORPUSCULAR VOLUME 84.3 FL (78-98); MEAN PLATELET VOLUME 7.6 FL (7.4-10.4); MONOCYTES # (AUTO) 1.3 X10'3 (0-0.9); MONOCYTES % (AUTO) 8.4 % (2-12); NEUTROPHILS # (AUTO) 12.4 X10'3 (1.8-7.7); NEUTROPHILS % (AUTO) 80.5 % (42-75); PLATELET COUNT 353 X10'3 (140-440); RED BLOOD COUNT 4.62 X10'6 (4.20-5.60); RED CELL DISTRIBUTION WIDTH 13.6 % (11.5-14.5); WHITE BLOOD COUNT 15.4 X10'3 (4.5-11.0)
[2017-06-04 06:00] VITALS: BP 140/69
[2017-06-04 06:05] LABS: ALBUMIN 2.9 G/DL (3.4-5.0); ANION GAP 4 (8-16); BLOOD UREA NITROGEN 41 MG/DL (7-18); BUN/CREATININE RATIO 29.3 (6.6-38.0); CALCIUM 8.1 MG/DL (8.5-10.1); CHLORIDE 98 MMOL/L (99-107); GLUCOSE 114 MG/DL (70-104); MAGNESIUM 2.1 MG/DL (1.5-2.4); POTASSIUM 3.7 MMOL/L (3.5-5.1); SODIUM 139 MMOL/L (135-145); TOTAL CARBON DIOXIDE 36.6 MMOL/L (24-32); eGFR 37 ML/MIN
[2017-06-04] MEDS: atorvastatin 10mg tablet PO SCH (07:13)
[2017-06-04] MEDS: lactobacillus rhamnosus 10,000 MMU CELLS/CAPSULE PO SCH ×2 (07:13→17:47)
[2017-06-04] MEDS: loratadine 10mg tablet PO SCH (07:13)
[2017-06-04] MEDS: amLODIPine 5mg tablet PO SCH (07:13)
[2017-06-04] MEDS: predniSONE 20 mg tablet PO SCH (07:14)
[2017-06-04] MEDS: furosemide 40mg tablet PO SCH ×2 (07:14→19:38)
[2017-06-04] MEDS: sertraline 50mg tablet PO SCH (07:14)
[2017-06-04] MEDS: guaiFENesin ER 600mg tablet PO SCH ×2 (07:14→19:39)
[2017-06-04] MEDS: heparin, porcine 5000 units/ml vial SQ SCH ×2 (07:15→19:39)
[2017-06-04] MEDS: levoFLOXACIN 500mg tablet PO SCH (10:52)
[2017-06-04] MEDS: morphine 4 MG/ML inj SYRINge IV PRN ×3 (10:52→16:19)
[2017-06-04 11:00] VITALS: BP 119/65
[2017-06-04] MEDS: insulin Lispro (HumaLOG) vial - multi-dose SQ SCH ×2 (12:54→19:43)
[2017-06-04 15:00] VITALS: BP 116/50
[2017-06-04 19:00] VITALS: BP 132/71
[2017-06-04] MEDS: acetylcysteine oral sol. 200 MG/ML 4ml vial PO SCH (21:25)
[2017-06-04] MEDS: dextrose 50%-water 50ml dispensing syringe IV PRN ×2 (21:52→23:57)
[2017-06-04] MEDS ORDERED: acetylcysteine 200 MG/ml 4ml vial ONE (22:42)
[2017-06-04] MEDS: insulin glargine (Lantus) pen - multi-dose SQ SCH (22:45)
[2017-06-04 23:00] VITALS: BP 110/56
[2017-06-05 03:00] VITALS: BP 107/51
[2017-06-05 05:30] LABS: BASOPHILS # (AUTO) 0.2 X10'3 (0-0.2); BASOPHILS % (AUTO) 0.9 % (0-1); EOSINOPHILS # (AUTO) 0.2 X10'3 (0-0.9); EOSINOPHILS % (AUTO) 1.4 % (0-6); HEMATOCRIT 39.4 % (35.0-45.0); HEMOGLOBIN 13.6 g/dl (12.0-16.0); LYMPHOCYTES # (AUTO) 2.4 X10'3 (1.1-4.8); LYMPHOCYTES % (AUTO) 13.4 % (21-51); MEAN CORPUSCULAR HEMOGLOBIN 29.2 PG (27.0-31.0); MEAN CORPUSCULAR HGB CONC 34.5 % (33.0-36.5); MEAN CORPUSCULAR VOLUME 84.6 FL (78-98); MEAN PLATELET VOLUME 7.3 FL (7.4-10.4); MONOCYTES # (AUTO) 1.3 X10'3 (0-0.9); MONOCYTES % (AUTO) 7.1 % (2-12); NEUTROPHILS # (AUTO) 13.8 X10'3 (1.8-7.7); NEUTROPHILS % (AUTO) 77.2 % (42-75); PLATELET COUNT 324 X10'3 (140-440); RED BLOOD COUNT 4.66 X10'6 (4.20-5.60); RED CELL DISTRIBUTION WIDTH 13.7 % (11.5-14.5); WHITE BLOOD COUNT 17.8 X10'3 (4.5-11.0)
[2017-06-05 05:36] LABS: ALBUMIN 2.8 G/DL (3.4-5.0); ANION GAP 4 (8-16); BLOOD UREA NITROGEN 42 MG/DL (7-18); CALCIUM 8.3 MG/DL (8.5-10.1); CHLORIDE 95 MMOL/L (99-107); GLUCOSE 209 MG/DL (70-104); POTASSIUM 3.3 MMOL/L (3.5-5.1); SODIUM 135 MMOL/L (135-145); TOTAL CARBON DIOXIDE 36.3 MMOL/L (24-32); eGFR 45 ML/MIN
[2017-06-05 06:00] VITALS: BP 157/72
[2017-06-05] MEDS: acetylcysteine oral sol. 200 MG/ML 4ml vial PO SCH ×2 (08:00→19:40)
[2017-06-05] MEDS ORDERED: magnesium 4gm in 100ml NS 100 ML IV PRN (08:25)
[2017-06-05] MEDS ORDERED: potassium Cl 20 mEq SR tablet PO PRN (08:25)
[2017-06-05] MEDS ORDERED: potassium Cl 40MEQ/NS 500ml 500 ML IV PRN ×2 (08:25)
[2017-06-05] MEDS ORDERED: magnesium Cl slow-release 64mg tablet PO PRN (08:25)
[2017-06-05] MEDS ORDERED: magnesium 2GM in 50ml NS 50 ML IV PRN (08:25)
[2017-06-05] MEDS: guaiFENesin ER 600mg tablet PO SCH ×2 (08:41→19:40)
[2017-06-05] MEDS: furosemide 40mg tablet PO SCH ×2 (08:41→19:40)
[2017-06-05] MEDS: amLODIPine 5mg tablet PO SCH (08:42)
[2017-06-05] MEDS: potassium Cl 20 mEq SR tablet PO PRN ×3 (08:44→17:18)
[2017-06-05] MEDS: atorvastatin 10mg tablet PO SCH (08:45)
[2017-06-05] MEDS: sertraline 50mg tablet PO SCH (08:50)
[2017-06-05] MEDS: loratadine 10mg tablet PO SCH (08:51)
[2017-06-05] MEDS: lactobacillus rhamnosus 10,000 MMU CELLS/CAPSULE PO SCH ×2 (08:51→17:18)
[2017-06-05] MEDS: predniSONE 20 mg tablet PO SCH (09:01)
[2017-06-05] MEDS: heparin, porcine 5000 units/ml vial SQ SCH ×2 (09:01→19:41)
[2017-06-05] MEDS: morphine 4 MG/ML inj SYRINge IV PRN ×2 (09:28→14:07)
[2017-06-05 11:00] VITALS: BP 112/57
[2017-06-05] MEDS: levoFLOXACIN 500mg tablet PO SCH (11:12)
[2017-06-05] MEDS: ipratropium/albuterol 3ml nebule NEB PRN (14:29)
[2017-06-05 15:00] VITALS: BP 116/61
[2017-06-05 19:00] VITALS: BP 110/51
[2017-06-05] MEDS: insulin Lispro (HumaLOG) vial - multi-dose SQ SCH (19:37)
[2017-06-05] MEDS: insulin glargine (Lantus) pen - multi-dose SQ SCH (21:52)
[2017-06-05 23:00] VITALS: BP 149/81
[2017-06-06 03:00] VITALS: BP 127/76
[2017-06-06 06:00] VITALS: BP 113/51
[2017-06-06] MEDS: acetylcysteine oral sol. 200 MG/ML 4ml vial PO SCH ×2 (07:39→19:09)
[2017-06-06] MEDS: lactobacillus rhamnosus 10,000 MMU CELLS/CAPSULE PO SCH ×2 (07:44→17:51)
[2017-06-06] MEDS: atorvastatin 10mg tablet PO SCH (07:45)
[2017-06-06] MEDS: predniSONE 20 mg tablet PO SCH (07:45)
[2017-06-06] MEDS: loratadine 10mg tablet PO SCH (07:46)
[2017-06-06] MEDS: sertraline 50mg tablet PO SCH (07:46)
[2017-06-06] MEDS: amLODIPine 5mg tablet PO SCH (07:47)
[2017-06-06] MEDS: furosemide 40mg tablet PO SCH ×2 (07:47→19:08)
[2017-06-06] MEDS: guaiFENesin ER 600mg tablet PO SCH ×2 (07:47→19:08)
[2017-06-06] MEDS: heparin, porcine 5000 units/ml vial SQ SCH ×2 (07:55→19:09)
[2017-06-06 08:21] LABS: ANION GAP 5 (8-16); BLOOD UREA NITROGEN 38 MG/DL (7-18); BUN/CREATININE RATIO 34.5 (6.6-38.0); CALCIUM 9.1 MG/DL (8.5-10.1); CHLORIDE 98 MMOL/L (99-107); GLUCOSE 107 MG/DL (70-104); POTASSIUM 4.5 MMOL/L (3.5-5.1); SODIUM 138 MMOL/L (135-145); TOTAL CARBON DIOXIDE 34.6 MMOL/L (24-32); eGFR 49 ML/MIN
[2017-06-06 11:00] VITALS: BP 117/67
[2017-06-06] MEDS: ipratropium/albuterol 3ml nebule NEB PRN (11:28)
[2017-06-06] MEDS: insulin Lispro (HumaLOG) vial - multi-dose SQ SCH ×2 (13:02→19:20)
[2017-06-06 15:00] VITALS: BP 136/63
[2017-06-06 19:00] VITALS: BP 112/71
[2017-06-06] MEDS: nystatin 500,000 unit/5ML UD oral suspension PO SCH (20:55)
[2017-06-06] MEDS: insulin glargine (Lantus) pen - multi-dose SQ SCH (21:00)
[2017-06-06 23:00] VITALS: BP 123/65
[2017-06-07 03:00] VITALS: BP 110/59
[2017-06-07 06:00] VITALS: BP 134/64
[2017-06-07] MEDS: lactobacillus rhamnosus 10,000 MMU CELLS/CAPSULE PO SCH (07:41)
[2017-06-07] MEDS: ipratropium/albuterol 3ml nebule NEB PRN (07:51)
[2017-06-07] MEDS: insulin Lispro (HumaLOG) vial - multi-dose SQ SCH ×2 (08:31→13:57)
[2017-06-07] MEDS: atorvastatin 10mg tablet PO SCH (08:32)
[2017-06-07] MEDS: sertraline 50mg tablet PO SCH (08:32)
[2017-06-07] MEDS: predniSONE 20 mg tablet PO SCH (08:32)
[2017-06-07] MEDS: nystatin 500,000 unit/5ML UD oral suspension PO SCH ×2 (08:32→12:59)
[2017-06-07] MEDS: heparin, porcine 5000 units/ml vial SQ SCH (08:32)
[2017-06-07] MEDS: loratadine 10mg tablet PO SCH (08:32)
[2017-06-07] MEDS: guaiFENesin ER 600mg tablet PO SCH (08:32)
[2017-06-07] MEDS: amLODIPine 5mg tablet PO SCH (08:41)
[2017-06-07] MEDS: furosemide 40mg tablet PO SCH (08:41)
[2017-06-07] MEDS: acetylcysteine oral sol. 200 MG/ML 4ml vial PO SCH (10:17)
[2017-06-07 11:00] VITALS: BP 117/67
[2017-06-07 15:00] VITALS: BP 114/54
== END 2017-06-07 15:45 | DRG 871 ==
LOC: ER 12:25 → ED HOLD 14:22 → PCU 3S 16:50
PROVIDERS: ADMIT Family Medicine; ATTEND Internal Medicine
DX: A41.9 Sepsis, unspecified organism (principal); J96.01 Acute respiratory failure with hypoxia; I50.30 Unspecified diastolic (congestive) heart failure; J44.1 Chronic obstructive pulmonary disease with (acute) exacerbation; I11.0 Hypertensive heart disease with heart failure; I27.20 Pulmonary hypertension, unspecified; E11.9 Type 2 diabetes mellitus without complications; F41.9 Anxiety disorder, unspecified; E78.5 Hyperlipidemia, unspecified; J84.10 Pulmonary fibrosis, unspecified; X58.XXXD Exposure to other specified factors, subsequent encounter; S22.39XD Fracture of one rib, unspecified side, subsequent encounter for fracture with routine healing; Z79.84 Long term (current) use of oral hypoglycemic drugs; Z79.899 Other long term (current) drug therapy; Z98.51 Tubal ligation status; Z87.891 Personal history of nicotine dependence
CPT/HCPCS: 36415; 36600; 71045; 71250; 80048; 80053; 82803; 82948; 83036; 83605; 83735; 84484; 85018; 85025; 87040; 87070; 87502; 87503; 93005; 93306; 94640; 94667; 94668; 94760; 96365; 96375; 97110; 97116; 97162; 97530; 99291; J0696; J1644; J1815; J1940; J1956; J2060; J2270; J2920; J2930; J3490; J7030; J7512

== ENCOUNTER 2017-09-10 08:12 | Emergency (ER) | payer MEDICARE, MEDICAID ==
[~2017-09-10] VITALS: Ht 165.1 cm; Wt 90.0 kg
[~2017-09-10 08:12] MED LIST: AMLO5TAB4 PO; ATOR10TA PO; ENAL5TAB77 PO; LORA10TA65 PO; METF500T PO; SERT50TA PO
[2017-09-10] MEDS ORDERED: ipratropium/albuterol 3ml nebule NEB ONE (08:50)
[2017-09-10 09:23] LABS: ALANINE AMINOTRANSFERASE 22 U/L (12-78); ALBUMIN 3.5 G/DL (3.4-5.0); ALBUMIN/GLOBULIN RATIO 1.1 (1.1-1.5); ALKALINE PHOSPHATASE 56 IU/L (46-116); ANION GAP 8 (8-16); ASPARTATE AMINO TRANSFERASE 25 U/L (10-37); BILIRUBIN,TOTAL 0.3 MG/DL (0.1-1.0); BLOOD UREA NITROGEN 14 MG/DL (7-18); BUN/CREATININE RATIO 17.1 (6.6-38.0); CHLORIDE 105 MMOL/L (99-107); CREATININE 0.82 MG/DL (0.40-0.90); GLUCOSE 99 MG/DL (70-104); POTASSIUM 4.3 MMOL/L (3.5-5.1); SODIUM 142 MMOL/L (135-145); TOTAL CARBON DIOXIDE 29.3 MMOL/L (24-32); TOTAL PROTEIN 6.6 G/DL (6.4-8.2); eGFR 69 ML/MIN
[2017-09-10 09:53] LABS: BASOPHILS % (AUTO) 0.7 % (0-1); EOSINOPHILS % (AUTO) 0.7 % (0-6); HEMOGLOBIN 11.9 g/dl (12.0-16.0); LYMPHOCYTES # (AUTO) 2.5 X10'3 (1.1-4.8); LYMPHOCYTES % (AUTO) 40.7 % (21-51); MEAN CORPUSCULAR HEMOGLOBIN 28.9 PG (27.0-31.0); MEAN CORPUSCULAR VOLUME 84.8 FL (78-98); MEAN PLATELET VOLUME 7.1 FL (7.4-10.4); MONOCYTES # (AUTO) 0.6 X10'3 (0-0.9); MONOCYTES % (AUTO) 9.1 % (2-12); NEUTROPHILS % (AUTO) 48.8 % (42-75); PLATELET COUNT 300 X10'3 (140-440); RED BLOOD COUNT 4.12 X10'6 (4.20-5.60); RED CELL DISTRIBUTION WIDTH 13.8 % (11.5-14.5); WHITE BLOOD COUNT 6.2 X10'3 (4.5-11.0)
[2017-09-10] MEDS ORDERED: LEVO750T21 PO (10:10)
[2017-09-10 10:22] VITALS: BP 146/74
== END 2017-09-10 10:25 | disposition home or self-care (01) ==
LOC: ER 08:12
DX: J20.9 Acute bronchitis, unspecified (principal); I10 Essential (primary) hypertension; J44.9 Chronic obstructive pulmonary disease, unspecified; Z79.899 Other long term (current) drug therapy; Z79.84 Long term (current) use of oral hypoglycemic drugs; Z87.891 Personal history of nicotine dependence
CPT/HCPCS: 36415; 71046; 80053; 85025; 94640; 94760; 99285

== ENCOUNTER 2017-09-27 12:19 | Inpatient (IN) | payer MEDICARE, MEDICAID ==
[~2017-09-27] VITALS: Ht 160 cm; Wt 86.4 kg
[2017-09-27] MEDS ORDERED: albuterol 2.5 MG/3 ML nebule NEB ONE (12:30)
[2017-09-27] MEDS ORDERED: ipratropium/albuterol 3ml nebule NEB ONE (12:30)
[2017-09-27] MEDS ORDERED: normal saline 1000ML IV soln IVB ONE (12:30)
[2017-09-27] MEDS ORDERED: methylPREDNISolone sod succ 125mg/2ml vial IV ONE (12:30)
[2017-09-27] MEDS ORDERED: levoFLOXACIN-Levaquin 500mg/D5 100 ML IV ONE (12:30)
[2017-09-27 12:44] LABS: BASOPHILS % (AUTO) 0.2 % (0-1); EOSINOPHILS % (AUTO) 0 % (0-6); HEMATOCRIT 41.7 % (35.0-45.0); HEMOGLOBIN 13.9 g/dl (12.0-16.0); LYMPHOCYTES # (AUTO) 1.5 X10'3 (1.1-4.8); LYMPHOCYTES % (AUTO) 12.9 % (21-51); MEAN CORPUSCULAR HEMOGLOBIN 28.5 PG (27.0-31.0); MEAN CORPUSCULAR HGB CONC 33.2 % (33.0-36.5); MEAN CORPUSCULAR VOLUME 85.7 FL (78-98); MEAN PLATELET VOLUME 7.2 FL (7.4-10.4); MONOCYTES # (AUTO) 0.8 X10'3 (0-0.9); MONOCYTES % (AUTO) 6.6 % (2-12); NEUTROPHILS # (AUTO) 9.5 X10'3 (1.8-7.7); NEUTROPHILS % (AUTO) 80.3 % (42-75); PLATELET COUNT 321 X10'3 (140-440); RED BLOOD COUNT 4.87 X10'6 (4.20-5.60); RED CELL DISTRIBUTION WIDTH 13.7 % (11.5-14.5); WHITE BLOOD COUNT 11.8 X10'3 (4.5-11.0)
[2017-09-27 12:56] LABS: PARTIAL THROMBOPLASTIN TIME 30 SECONDS (22-32); PROTHROMBIN TIME 10.7 SECONDS (9.0-12.0)
[2017-09-27 13:01] LABS: ALANINE AMINOTRANSFERASE 14 U/L (12-78); ALBUMIN 3.5 G/DL (3.4-5.0); ALBUMIN/GLOBULIN RATIO 0.9 (1.1-1.5); ALKALINE PHOSPHATASE 65 IU/L (46-116); ANION GAP 11 (8-16); ASPARTATE AMINO TRANSFERASE 12 U/L (10-37); BILIRUBIN,TOTAL 0.7 MG/DL (0.1-1.0); BLOOD UREA NITROGEN 12 MG/DL (7-18); CALCIUM 8.9 MG/DL (8.5-10.1); CHLORIDE 97 MMOL/L (99-107); GLUCOSE 116 MG/DL (70-104); POTASSIUM 3.7 MMOL/L (3.5-5.1); SODIUM 139 MMOL/L (135-145); TOTAL CARBON DIOXIDE 30.9 MMOL/L (24-32); TOTAL PROTEIN 7.5 G/DL (6.4-8.2); eGFR 71 ML/MIN
[2017-09-27 14:35] LABS: CLARITY,URINE SLIGHTLY CLOUDY (Clear); COLOR,URINE YELLOW (Yellow); GLUCOSE, URINE NEGATIVE (Neg); KETONES,URINE 15 mg/dl (Neg); LEUKOCYTE ESTERASE ,URINE NEGATIVE (Neg); NITRITES, URINE NEGATIVE (Neg); OCCULT BLOOD,URINE TRACE-LYSED (Neg); PH,URINE 5.5 (4.8-8.0); PROTEIN,URINE TRACE mg/dl (Neg); UROBILINOGEN,URINE 0.2 E.U/dL (0.2-1.0)
[2017-09-27 14:36] LABS: UA COLLECTION TYPE STRAIGHT CATH
[2017-09-27 14:44] LABS: AMORPHOUS URATES 1+; BACTERIA,URINE NONE SEEN /HPF (Neg); MUCUS STRANDS MODERATE /LPF (Neg); RBC,URINE 0-2 /HPF (0-2); SQUAMOUS EPITHELIAL CELL,UR FEW /LPF (FEW); WBC,URINE 0-4 /HPF (0-4)
[2017-09-27] MEDS ORDERED: albuterol 2.5 MG/3 ML nebule CONTNEB PRN (15:35)
[2017-09-27] MEDS ORDERED: ipratropium 0.5 MG/2.5ML nebule IH ONE (15:35)
[2017-09-27] MEDS ORDERED: dextrose ORAL solution 15 GM/59 ML bottle PO PRN ×2 (15:40)
[2017-09-27] MEDS ORDERED: HYDROcodone/acetaminophen 5mg/325mg tablet PO PRN (15:40)
[2017-09-27] MEDS ORDERED: magnesium hydroxide 30ml (MOM) UD suspension PO PRN (15:40)
[2017-09-27] MEDS ORDERED: acetaminophen 325mg tablet PO PRN ×2 (15:40)
[2017-09-27] MEDS ORDERED: MESSAGE TO PHARMACY PO ONE (15:40)
[2017-09-27] MEDS ORDERED: glucagon, human recombinant 1mg kit SUBCUT PRN (15:40)
[2017-09-27] MEDS ORDERED: dextrose 50%-water 50ml dispensing syringe IV PRN ×2 (15:40)
[2017-09-27] MEDS ORDERED: mag hydrox/Alum hydrox/simeth 30ml oral suspension PO PRN (15:40)
[2017-09-27] MEDS ORDERED: albuterol 2.5 MG/3 ML nebule NEB PRN (15:40)
[2017-09-27] MEDS ORDERED: ondansetron/PF 4mg/2ml inj IV PRN (15:40)
[2017-09-27] MEDS ORDERED: iohexol 350MG/ML 100ml bottle IV ONE (16:01)
[2017-09-27 16:21] LABS: HEMOGLOBIN A1C 5.5 % (4.5-6.2)
[2017-09-27] MEDS: MESSAGE TO NURSING PO NR (17:03)
[2017-09-27] MEDS: HYDROcodone/acetaminophen 10/325mg tab PO PRN ×2 (17:04→21:43)
[2017-09-27] MEDS: ipratropium/albuterol 3ml nebule NEB SCH ×2 (19:47→23:37)
[2017-09-27 19:50] VITALS: BP 131/67
[2017-09-27] MEDS ORDERED: temazepam 15mg capsule PO PRN (21:00)
[2017-09-27] MEDS: methylPREDNISolone sod succ 125mg/2ml vial IV SCH (21:25)
[2017-09-27] MEDS: insulin Lispro (HumaLOG) vial - multi-dose SQ SCH (21:33)
[2017-09-27] MEDS: insulin glargine (Lantus) pen - multi-dose SQ SCH (21:33)
[2017-09-27 23:00] VITALS: BP 138/67
[2017-09-28 02:14] LABS: BASOPHILS % (AUTO) 0.1 % (0-1); EOSINOPHILS % (AUTO) 0 % (0-6); HEMATOCRIT 35.5 % (35.0-45.0); HEMOGLOBIN 12.1 g/dl (12.0-16.0); LYMPHOCYTES # (AUTO) 0.4 X10'3 (1.1-4.8); LYMPHOCYTES % (AUTO) 5.6 % (21-51); MEAN CORPUSCULAR HGB CONC 34.1 % (33.0-36.5); MEAN CORPUSCULAR VOLUME 84.9 FL (78-98); MEAN PLATELET VOLUME 7.1 FL (7.4-10.4); MONOCYTES # (AUTO) 0.1 X10'3 (0-0.9); MONOCYTES % (AUTO) 1.5 % (2-12); NEUTROPHILS # (AUTO) 7.3 X10'3 (1.8-7.7); NEUTROPHILS % (AUTO) 92.8 % (42-75); PLATELET COUNT 278 X10'3 (140-440); RED BLOOD COUNT 4.19 X10'6 (4.20-5.60); RED CELL DISTRIBUTION WIDTH 13.5 % (11.5-14.5); WHITE BLOOD COUNT 7.8 X10'3 (4.5-11.0)
[2017-09-28 02:32] LABS: ALBUMIN 3.1 G/DL (3.4-5.0); ANION GAP 11 (8-16); BLOOD UREA NITROGEN 15 MG/DL (7-18); BUN/CREATININE RATIO 17.9 (6.6-38.0); CALCIUM 8.5 MG/DL (8.5-10.1); CHLORIDE 100 MMOL/L (99-107); CREATININE 0.84 MG/DL (0.40-0.90); GLUCOSE 225 MG/DL (70-104); POTASSIUM 3.2 MMOL/L (3.5-5.1); SODIUM 138 MMOL/L (135-145); TOTAL CARBON DIOXIDE 26.7 MMOL/L (24-32); eGFR 67 ML/MIN
[2017-09-28 03:00] VITALS: BP 154/90
[2017-09-28] MEDS: ipratropium/albuterol 3ml nebule NEB SCH ×6 (03:25→23:18)
[2017-09-28 06:00] VITALS: BP 138/56
[2017-09-28] MEDS: amLODIPine 5mg tablet PO SCH (08:17)
[2017-09-28] MEDS: sertraline 50mg tablet PO SCH (08:17)
[2017-09-28] MEDS: methylPREDNISolone sod succ 125mg/2ml vial IV SCH ×3 (08:18→20:05)
[2017-09-28] MEDS: loratadine 10mg tablet PO SCH (08:18)
[2017-09-28] MEDS: atorvastatin 10mg tablet PO SCH (08:18)
[2017-09-28] MEDS: lisinopril 5mg tablet PO SCH (08:18)
[2017-09-28] MEDS: enoxaparin 40mg/0.4ml syringe SQ SCH (08:19)
[2017-09-28] MEDS: HYDROcodone/acetaminophen 10/325mg tab PO PRN ×3 (08:21→20:05)
[2017-09-28] MEDS: insulin Lispro (HumaLOG) vial - multi-dose SQ SCH ×2 (09:32→14:39)
[2017-09-28] MEDS ORDERED: potassium Cl 40MEQ/NS 500ml 500 ML IV PRN ×2 (10:15)
[2017-09-28] MEDS ORDERED: potassium Cl 20 mEq SR tablet PO PRN (10:15)
[2017-09-28] MEDS ORDERED: magnesium/D5W IVPB 100 ML IV PRN (10:15)
[2017-09-28] MEDS ORDERED: magnesium 4gm in 100ml NS 100 ML IV PRN (10:15)
[2017-09-28] MEDS: MESSAGE TO NURSING PO NR (10:55)
[2017-09-28] MEDS: potassium Cl 20 mEq SR tablet PO PRN ×3 (11:29→20:05)
[2017-09-28] MEDS: levoFLOXACIN 750MG TABLET PO SCH (11:30)
[2017-09-28] MEDS: morphine 4 MG/ML inj SYRINge IV PRN (14:21)
[2017-09-28 15:00] VITALS: BP 102/36
[2017-09-28] MEDS ORDERED: morphine oral 20mg/ml (conc. morphine) 1ml oral syringe PO PRN (17:10)
[2017-09-28] MEDS ORDERED: morphine 10mg/0.5ml (conc. morphine) oral syringe PO PRN (17:30)
[2017-09-28 18:00] VITALS: BP 119/49
[2017-09-28] MEDS ORDERED: ipratropium/albuterol 3ml nebule NEB SCH (19:00)
[2017-09-28] MEDS: lactobacillus rhamnosus 10,000 MMU CELLS/CAPSULE PO SCH (20:04)
[2017-09-28] MEDS: insulin glargine (Lantus) pen - multi-dose SQ SCH (21:12)
[2017-09-28 22:00] VITALS: BP 116/50
[2017-09-29] MEDS: HYDROcodone/acetaminophen 10/325mg tab PO PRN ×3 (01:30→19:53)
[2017-09-29 02:00] VITALS: BP 129/63
[2017-09-29] MEDS: ipratropium/albuterol 3ml nebule NEB SCH (02:44)
[2017-09-29 06:00] VITALS: BP 131/86
[2017-09-29 06:15] LABS: BASOPHILS % (AUTO) 0.1 % (0-1); EOSINOPHILS % (AUTO) 0 % (0-6); HEMATOCRIT 33.2 % (35.0-45.0); HEMOGLOBIN 11.1 g/dl (12.0-16.0); LYMPHOCYTES # (AUTO) 0.6 X10'3 (1.1-4.8); MEAN CORPUSCULAR HEMOGLOBIN 28.6 PG (27.0-31.0); MEAN CORPUSCULAR HGB CONC 33.6 % (33.0-36.5); MEAN CORPUSCULAR VOLUME 85.2 FL (78-98); MEAN PLATELET VOLUME 8.2 FL (7.4-10.4); MONOCYTES # (AUTO) 0.6 X10'3 (0-0.9); MONOCYTES % (AUTO) 4.6 % (2-12); NEUTROPHILS # (AUTO) 12.8 X10'3 (1.8-7.7); NEUTROPHILS % (AUTO) 91.3 % (42-75); PLATELET COUNT 313 X10'3 (140-440); RED BLOOD COUNT 3.89 X10'6 (4.20-5.60); RED CELL DISTRIBUTION WIDTH 13.3 % (11.5-14.5)
[2017-09-29 06:29] LABS: ALBUMIN 2.9 G/DL (3.4-5.0); ANION GAP 12 (8-16); BLOOD UREA NITROGEN 36 MG/DL (7-18); BUN/CREATININE RATIO 29.8 (6.6-38.0); CALCIUM 8.2 MG/DL (8.5-10.1); CHLORIDE 94 MMOL/L (99-107); CREATININE 1.21 MG/DL (0.40-0.90); GLUCOSE 217 MG/DL (70-104); MAGNESIUM 1.2 MG/DL (1.5-2.4); SODIUM 131 MMOL/L (135-145); TOTAL CARBON DIOXIDE 25.2 MMOL/L (24-32); eGFR 44 ML/MIN
[2017-09-29 06:30] LABS: POTASSIUM 3.9 MMOL/L (3.5-5.1)
[2017-09-29] MEDS ORDERED: levalbuterol 0.63mg/3ml nebule IH PRN (07:30)
[2017-09-29] MEDS: lisinopril 5mg tablet PO SCH (07:42)
[2017-09-29] MEDS: atorvastatin 10mg tablet PO SCH (07:42)
[2017-09-29] MEDS: methylPREDNISolone sod succ 125mg/2ml vial IV SCH ×3 (07:42→21:30)
[2017-09-29] MEDS: loratadine 10mg tablet PO SCH (07:42)
[2017-09-29] MEDS: lactobacillus rhamnosus 10,000 MMU CELLS/CAPSULE PO SCH ×2 (07:42→21:30)
[2017-09-29] MEDS: sertraline 50mg tablet PO SCH (07:42)
[2017-09-29] MEDS: amLODIPine 5mg tablet PO SCH (07:42)
[2017-09-29] MEDS: enoxaparin 40mg/0.4ml syringe SQ SCH (07:43)
[2017-09-29] MEDS: insulin Lispro (HumaLOG) vial - multi-dose SQ SCH ×3 (08:39→20:03)
[2017-09-29] MEDS: ipratropium 0.5 MG/2.5ML nebule IH SCH ×2 (08:41→21:04)
[2017-09-29] MEDS: levalbuterol 0.63mg/3ml nebule IH SCH ×5 (08:50→21:04)
[2017-09-29] MEDS ORDERED: normal saline 1000ml 1,000 ML IV SCH (09:20)
[2017-09-29] MEDS: MESSAGE TO NURSING PO NR (09:42)
[2017-09-29] MEDS: levoFLOXACIN 750MG TABLET PO SCH (10:28)
[2017-09-29] MEDS: benzonatate 100mg capsule PO PRN ×2 (10:32→18:49)
[2017-09-29 11:00] VITALS: BP 121/54
[2017-09-29] MEDS ORDERED: LIDOcaine/PRILOcaine 5gm cream TP PRN (11:20)
[2017-09-29 15:00] VITALS: BP 146/56
[2017-09-29 19:00] VITALS: BP 137/77
[2017-09-29] MEDS: insulin glargine (Lantus) pen - multi-dose SQ SCH (21:51)
[2017-09-29] MEDS: morphine 4 MG/ML inj SYRINge IV PRN (22:40)
[2017-09-29 23:00] VITALS: BP 135/66
[2017-09-30] MEDS: ipratropium 0.5 MG/2.5ML nebule IH SCH ×4 (02:40→20:51)
[2017-09-30] MEDS: levalbuterol 0.63mg/3ml nebule IH SCH ×4 (02:41→20:51)
[2017-09-30 03:00] VITALS: BP 151/76
[2017-09-30] MEDS: benzonatate 100mg capsule PO PRN ×2 (03:27→20:22)
[2017-09-30] MEDS: HYDROcodone/acetaminophen 10/325mg tab PO PRN ×2 (03:36→20:25)
[2017-09-30 05:30] LABS: BASOPHILS % (AUTO) 0 % (0-1); EOSINOPHILS % (AUTO) 0 % (0-6); HEMATOCRIT 34.3 % (35.0-45.0); HEMOGLOBIN 11.4 g/dl (12.0-16.0); LYMPHOCYTES # (AUTO) 0.4 X10'3 (1.1-4.8); LYMPHOCYTES % (AUTO) 4.8 % (21-51); MEAN CORPUSCULAR HEMOGLOBIN 28.1 PG (27.0-31.0); MEAN CORPUSCULAR HGB CONC 33.3 % (33.0-36.5); MEAN CORPUSCULAR VOLUME 84.5 FL (78-98); MEAN PLATELET VOLUME 7.6 FL (7.4-10.4); MONOCYTES # (AUTO) 0.4 X10'3 (0-0.9); MONOCYTES % (AUTO) 4.8 % (2-12); NEUTROPHILS # (AUTO) 7.3 X10'3 (1.8-7.7); NEUTROPHILS % (AUTO) 90.4 % (42-75); PLATELET COUNT 334 X10'3 (140-440); RED BLOOD COUNT 4.06 X10'6 (4.20-5.60); RED CELL DISTRIBUTION WIDTH 13.4 % (11.5-14.5); WHITE BLOOD COUNT 8.1 X10'3 (4.5-11.0)
[2017-09-30 05:45] LABS: ANION GAP 7 (8-16); BLOOD UREA NITROGEN 27 MG/DL (7-18); CALCIUM 8.6 MG/DL (8.5-10.1); CHLORIDE 99 MMOL/L (99-107); CREATININE 1.04 MG/DL (0.40-0.90); GLUCOSE 169 MG/DL (70-104); MAGNESIUM 2.5 MG/DL (1.5-2.4); POTASSIUM 4.5 MMOL/L (3.5-5.1); SODIUM 135 MMOL/L (135-145); TOTAL CARBON DIOXIDE 28.7 MMOL/L (24-32); eGFR 52 ML/MIN
[2017-09-30 06:00] VITALS: BP 142/68
[2017-09-30] MEDS: insulin Lispro (HumaLOG) vial - multi-dose SQ SCH ×4 (08:39→20:20)
[2017-09-30] MEDS: methylPREDNISolone sod succ 125mg/2ml vial IV SCH ×3 (08:43→16:05)
[2017-09-30] MEDS: atorvastatin 10mg tablet PO SCH (08:50)
[2017-09-30] MEDS: loratadine 10mg tablet PO SCH (08:50)
[2017-09-30] MEDS: lactobacillus rhamnosus 10,000 MMU CELLS/CAPSULE PO SCH ×2 (08:50→20:21)
[2017-09-30] MEDS: amLODIPine 5mg tablet PO SCH (08:51)
[2017-09-30] MEDS: lisinopril 5mg tablet PO SCH (08:51)
[2017-09-30] MEDS: sertraline 50mg tablet PO SCH (08:51)
[2017-09-30] MEDS: montelukast 10mg tablet PO SCH (08:51)
[2017-09-30] MEDS: enoxaparin 40mg/0.4ml syringe SQ SCH (08:53)
[2017-09-30] MEDS: morphine 4 MG/ML inj SYRINge IV PRN ×2 (09:33→14:32)
[2017-09-30 11:00] VITALS: BP 139/80
[2017-09-30] MEDS: levoFLOXACIN 750MG TABLET PO SCH (11:08)
[2017-09-30 15:00] VITALS: BP 143/80
[2017-09-30] MEDS: fluticasone nasal spray 16GM bottle NS SCH (15:40)
[2017-09-30 19:00] VITALS: BP 133/70
[2017-09-30 23:00] VITALS: BP 150/90
[2017-10-01] MEDS: morphine 4 MG/ML inj SYRINge IV PRN ×4 (00:11→21:56)
[2017-10-01] MEDS: methylPREDNISolone sod succ 125mg/2ml vial IV SCH ×4 (00:11→23:57)
[2017-10-01] MEDS: insulin glargine (Lantus) pen - multi-dose SQ SCH ×2 (00:26→21:31)
[2017-10-01 03:00] VITALS: BP 166/79
[2017-10-01] MEDS: ipratropium 0.5 MG/2.5ML nebule IH SCH ×4 (03:08→20:21)
[2017-10-01] MEDS: levalbuterol 0.63mg/3ml nebule IH SCH ×4 (03:08→20:21)
[2017-10-01 05:11] LABS: BASOPHILS % (AUTO) 0 % (0-1); EOSINOPHILS % (AUTO) 0 % (0-6); HEMATOCRIT 33.4 % (35.0-45.0); HEMOGLOBIN 11.2 g/dl (12.0-16.0); LYMPHOCYTES # (AUTO) 0.5 X10'3 (1.1-4.8); LYMPHOCYTES % (AUTO) 6.2 % (21-51); MEAN CORPUSCULAR HEMOGLOBIN 28.2 PG (27.0-31.0); MEAN CORPUSCULAR HGB CONC 33.6 % (33.0-36.5); MEAN CORPUSCULAR VOLUME 83.9 FL (78-98); MEAN PLATELET VOLUME 7.3 FL (7.4-10.4); MONOCYTES # (AUTO) 0.4 X10'3 (0-0.9); MONOCYTES % (AUTO) 5.3 % (2-12); NEUTROPHILS # (AUTO) 6.6 X10'3 (1.8-7.7); NEUTROPHILS % (AUTO) 88.5 % (42-75); PLATELET COUNT 333 X10'3 (140-440); RED BLOOD COUNT 3.98 X10'6 (4.20-5.60); RED CELL DISTRIBUTION WIDTH 13.1 % (11.5-14.5); WHITE BLOOD COUNT 7.5 X10'3 (4.5-11.0)
[2017-10-01 05:26] LABS: ALBUMIN 2.9 G/DL (3.4-5.0); ANION GAP 6 (8-16); BLOOD UREA NITROGEN 27 MG/DL (7-18); BUN/CREATININE RATIO 27.8 (6.6-38.0); CALCIUM 8.5 MG/DL (8.5-10.1); CHLORIDE 102 MMOL/L (99-107); CREATININE 0.97 MG/DL (0.40-0.90); GLUCOSE 144 MG/DL (70-104); SODIUM 137 MMOL/L (135-145); TOTAL CARBON DIOXIDE 29.1 MMOL/L (24-32); eGFR 57 ML/MIN
[2017-10-01 06:00] VITALS: BP 139/74
[2017-10-01] MEDS: lactobacillus rhamnosus 10,000 MMU CELLS/CAPSULE PO SCH ×2 (09:17→19:12)
[2017-10-01] MEDS: loratadine 10mg tablet PO SCH (09:17)
[2017-10-01] MEDS: fluticasone nasal spray 16GM bottle NS SCH (09:17)
[2017-10-01] MEDS: atorvastatin 10mg tablet PO SCH (09:18)
[2017-10-01] MEDS: amLODIPine 5mg tablet PO SCH (09:18)
[2017-10-01] MEDS: montelukast 10mg tablet PO SCH (09:19)
[2017-10-01] MEDS: lisinopril 5mg tablet PO SCH (09:19)
[2017-10-01] MEDS: enoxaparin 40mg/0.4ml syringe SQ SCH (09:21)
[2017-10-01] MEDS: sertraline 50mg tablet PO SCH (09:21)
[2017-10-01] MEDS: benzonatate 100mg capsule PO PRN ×2 (09:22→19:12)
[2017-10-01] MEDS: insulin Lispro (HumaLOG) vial - multi-dose SQ SCH ×3 (09:28→19:07)
[2017-10-01 11:00] VITALS: BP 139/53
[2017-10-01 15:00] VITALS: BP 174/69
[2017-10-01 19:00] VITALS: BP 148/88
[2017-10-01 23:00] VITALS: BP 170/84
[2017-10-02] MEDS: ipratropium 0.5 MG/2.5ML nebule IH SCH ×3 (02:26→15:30)
[2017-10-02] MEDS: levalbuterol 0.63mg/3ml nebule IH SCH ×3 (02:26→15:30)
[2017-10-02 03:00] VITALS: BP 150/52
[2017-10-02 05:36] LABS: BASOPHILS % (AUTO) 0.5 % (0-1); EOSINOPHILS # (AUTO) 0.1 X10'3 (0-0.9); EOSINOPHILS % (AUTO) 0.6 % (0-6); HEMATOCRIT 35.3 % (35.0-45.0); HEMOGLOBIN 11.9 g/dl (12.0-16.0); LYMPHOCYTES # (AUTO) 0.8 X10'3 (1.1-4.8); LYMPHOCYTES % (AUTO) 8.3 % (21-51); MEAN CORPUSCULAR HEMOGLOBIN 28.8 PG (27.0-31.0); MEAN CORPUSCULAR HGB CONC 33.8 % (33.0-36.5); MEAN CORPUSCULAR VOLUME 85.3 FL (78-98); MEAN PLATELET VOLUME 7.7 FL (7.4-10.4); MONOCYTES # (AUTO) 0.6 X10'3 (0-0.9); MONOCYTES % (AUTO) 6.2 % (2-12); NEUTROPHILS # (AUTO) 8.3 X10'3 (1.8-7.7); NEUTROPHILS % (AUTO) 84.4 % (42-75); PLATELET COUNT 372 X10'3 (140-440); RED BLOOD COUNT 4.14 X10'6 (4.20-5.60); RED CELL DISTRIBUTION WIDTH 13.2 % (11.5-14.5); WHITE BLOOD COUNT 9.8 X10'3 (4.5-11.0)
[2017-10-02 06:01] LABS: ALBUMIN 3.1 G/DL (3.4-5.0); ANION GAP 9 (8-16); BLOOD UREA NITROGEN 24 MG/DL (7-18); BUN/CREATININE RATIO 32.4 (6.6-38.0); CALCIUM 8.5 MG/DL (8.5-10.1); CHLORIDE 102 MMOL/L (99-107); CREATININE 0.74 MG/DL (0.40-0.90); GLUCOSE 116 MG/DL (70-104); POTASSIUM 4.1 MMOL/L (3.5-5.1); SODIUM 142 MMOL/L (135-145); TOTAL CARBON DIOXIDE 31.1 MMOL/L (24-32); eGFR 78 ML/MIN
[2017-10-02 07:00] VITALS: BP 134/56
[2017-10-02] MEDS: lisinopril 5mg tablet PO SCH (09:10)
[2017-10-02] MEDS: benzonatate 100mg capsule PO PRN (09:11)
[2017-10-02] MEDS: sertraline 50mg tablet PO SCH (09:11)
[2017-10-02] MEDS: loratadine 10mg tablet PO SCH (09:11)
[2017-10-02] MEDS: montelukast 10mg tablet PO SCH (09:12)
[2017-10-02] MEDS: lactobacillus rhamnosus 10,000 MMU CELLS/CAPSULE PO SCH ×2 (09:12→19:00)
[2017-10-02] MEDS: amLODIPine 5mg tablet PO SCH (09:12)
[2017-10-02] MEDS: atorvastatin 10mg tablet PO SCH (09:12)
[2017-10-02] MEDS: methylPREDNISolone sod succ 125mg/2ml vial IV SCH ×2 (09:13→17:49)
[2017-10-02] MEDS: enoxaparin 40mg/0.4ml syringe SQ SCH (09:13)
[2017-10-02] MEDS: fluticasone nasal spray 16GM bottle NS SCH (09:29)
[2017-10-02] MEDS: insulin Lispro (HumaLOG) vial - multi-dose SQ SCH ×3 (09:34→19:00)
[2017-10-02] MEDS: HYDROcodone/acetaminophen 10/325mg tab PO PRN ×2 (09:39→17:48)
[2017-10-02 11:00] VITALS: BP 150/81
[2017-10-02] MEDS: levoFLOXACIN 750MG TABLET PO SCH (11:44)
[2017-10-02] MEDS: morphine 4 MG/ML inj SYRINge IV PRN ×2 (11:59→19:06)
[2017-10-02] MEDS ORDERED: PRED10TA23 PO (14:15)
[2017-10-02] MEDS ORDERED: FLUT1DIS4 INH (14:15)
[2017-10-02] MEDS ORDERED: ALBU8HFA PO (14:15)
[2017-10-02] MEDS ORDERED: LEVO500T2 PO (14:15)
[2017-10-02 15:00] VITALS: BP 140/75
[2017-10-02 18:00] VITALS: BP 144/82
== END 2017-10-02 19:30 | disposition home or self-care (01) | DRG 190 ==
LOC: ER 12:19 → ED HOLD 15:40 → PCU 3S 19:34
PROVIDERS: ADMIT Hospitalist; ATTEND Family Medicine
PROC: B32T1ZZ Computerized Tomography (CT Scan) of Left Pulmonary Artery using Low Osmolar Contrast (ICD-10-PCS; principal; 2017-09-27)
PROC: B3201ZZ Computerized Tomography (CT Scan) of Thoracic Aorta using Low Osmolar Contrast (ICD-10-PCS; 2017-09-27)
PROC: B32S1ZZ Computerized Tomography (CT Scan) of Right Pulmonary Artery using Low Osmolar Contrast (ICD-10-PCS; 2017-09-27)
DX: J44.1 Chronic obstructive pulmonary disease with (acute) exacerbation (principal); J96.21 Acute and chronic respiratory failure with hypoxia; J44.0 Chronic obstructive pulmonary disease with (acute) lower respiratory infection; M94.0 Chondrocostal junction syndrome [Tietze]; J20.9 Acute bronchitis, unspecified; E87.6 Hypokalemia; E11.9 Type 2 diabetes mellitus without complications; R00.0 Tachycardia, unspecified; I10 Essential (primary) hypertension; Z79.899 Other long term (current) drug therapy; Z79.01 Long term (current) use of anticoagulants; Z79.84 Long term (current) use of oral hypoglycemic drugs; Z87.891 Personal history of nicotine dependence
CPT/HCPCS: 36415; 71045; 71275; 80048; 80053; 81001; 82948; 83036; 83605; 83735; 83880; 84145; 84484; 85025; 85610; 85730; 87040; 87070; 93005; 94640; 94667; 94668; 94760; 96365; 96375; 97110; 97116; 97161; 99285; A4620; A6223; A6250; A6258; J1650; J1815; J1956; J2270; J2405; J2930; J3475; J7030; J7614; Q9967

== ENCOUNTER 2018-02-07 10:19 | Emergency (ER) | payer MEDICARE, MEDICAID ==
[~2018-02-07] VITALS: Ht 167.6 cm; Wt 83.0 kg
[~2018-02-07 10:19] MED LIST changes: +FLUT1DIS4 INH
[2018-02-07] MEDS ORDERED: levoFLOXACIN-Levaquin 750MG/D5 150 ML IV STA (10:48)
[2018-02-07] MEDS ORDERED: methylPREDNISolone sod succ 125mg/2ml vial IV ONE (10:50)
[2018-02-07] MEDS ORDERED: normal saline 1000ML IV soln IV ONE (10:50)
[2018-02-07] MEDS ORDERED: ipratropium/albuterol 3ml nebule NEB ONE (10:50)
[2018-02-07] MEDS ORDERED: ondansetron/PF 4mg/2ml inj IV ONE (10:50)
[2018-02-07 11:24] LABS: BASOPHILS # (AUTO) 0.1 X10'3 (0-0.2); BASOPHILS % (AUTO) 0.8 % (0-1); EOSINOPHILS % (AUTO) 0.3 % (0-6); HEMATOCRIT 39.1 % (35.0-45.0); HEMOGLOBIN 12.9 g/dl (12.0-16.0); LYMPHOCYTES # (AUTO) 1.6 X10'3 (1.1-4.8); LYMPHOCYTES % (AUTO) 22.8 % (21-51); MEAN CORPUSCULAR HEMOGLOBIN 27.1 PG (27.0-31.0); MEAN CORPUSCULAR HGB CONC 32.8 % (33.0-36.5); MEAN CORPUSCULAR VOLUME 82.5 FL (78-98); MEAN PLATELET VOLUME 7.3 FL (7.4-10.4); MONOCYTES # (AUTO) 0.6 X10'3 (0-0.9); MONOCYTES % (AUTO) 8.7 % (2-12); NEUTROPHILS # (AUTO) 4.7 X10'3 (1.8-7.7); NEUTROPHILS % (AUTO) 67.4 % (42-75); PLATELET COUNT 364 X10'3 (140-440); RED BLOOD COUNT 4.74 X10'6 (4.20-5.60)
[2018-02-07 11:47] LABS: CHLORIDE 102 MMOL/L (99-107); POTASSIUM 4.1 MMOL/L (3.5-5.1); TOTAL CARBON DIOXIDE 29.4 MMOL/L (24-32)
[2018-02-07 11:55] LABS: ALANINE AMINOTRANSFERASE 17 U/L (12-78); ALBUMIN 3.4 G/DL (3.4-5.0); ALKALINE PHOSPHATASE 80 IU/L (46-116); ANION GAP 9 (8-16); ASPARTATE AMINO TRANSFERASE 16 U/L (10-37); BILIRUBIN,TOTAL 0.3 MG/DL (0.1-1.0); BLOOD UREA NITROGEN 17 MG/DL (7-18); CALCIUM 8.6 MG/DL (8.5-10.1); CREATININE 0.85 MG/DL (0.40-0.90); GLUCOSE 95 MG/DL (70-104); MAGNESIUM 1.5 MG/DL (1.5-2.4); SODIUM 140 MMOL/L (135-145); TOTAL PROTEIN 6.8 G/DL (6.4-8.2); eGFR 66 ML/MIN
[2018-02-07 12:20] LABS: PARTIAL THROMBOPLASTIN TIME 31 SECONDS (22-32)
[2018-02-07] MEDS ORDERED: PRED20TA PO (12:27)
[2018-02-07] MEDS ORDERED: LEVO750T21 PO (12:27)
[2018-02-07 12:30] LABS: CLARITY,URINE SLIGHTLY CLOUDY (Clear); COLOR,URINE YELLOW (Yellow); GLUCOSE, URINE NEGATIVE (Neg); KETONES,URINE NEGATIVE (Neg); LEUKOCYTE ESTERASE ,URINE MODERATE (Neg); NITRITES, URINE POSITIVE (Neg); OCCULT BLOOD,URINE TRACE-INTACT (Neg); PH,URINE 5.5 (4.8-8.0); PROTEIN,URINE NEGATIVE (Neg); UROBILINOGEN,URINE 0.2 E.U/dL (0.2-1.0)
[2018-02-07 12:31] LABS: UA COLLECTION TYPE CLN CATCH MIDSTREAM
[2018-02-07] MEDS ORDERED: acetaminophen 325mg tablet PO ONE (12:35)
[2018-02-07 12:41] VITALS: BP 134/67
[2018-02-07 12:43] LABS: BACTERIA,URINE 3+ /HPF (Neg); MUCUS STRANDS NONE SEEN /LPF (Neg); RBC,URINE 0-2 /HPF (0-2); SQUAMOUS EPITHELIAL CELL,UR MODERATE /LPF (FEW); WBC,URINE 30-50 /HPF (0-4)
== END 2018-02-07 12:50 | disposition home or self-care (01) ==
LOC: ER 10:19
DX: J44.1 Chronic obstructive pulmonary disease with (acute) exacerbation (principal); J06.9 Acute upper respiratory infection, unspecified; I10 Essential (primary) hypertension; Z79.899 Other long term (current) drug therapy
CPT/HCPCS: 36415; 71045; 80053; 81001; 83605; 83735; 84145; 85025; 85610; 85730; 87040; 87077; 87088; 87186; 93005; 94640; 94760; 96365; 96375; 99285; J1956; J2405; J2930

== ENCOUNTER 2018-03-31 10:09 | Emergency (ER) | payer MEDICARE, MEDICAID ==
[~2018-03-31] VITALS: Ht 165.1 cm; Wt 87.3 kg
[2018-03-31 10:27] VITALS: BP 140/77
[2018-03-31] MEDS ORDERED: AMOX-580 PO (13:04)
[2018-03-31] MEDS ORDERED: MYCOL30CR TP (13:04)
== END 2018-03-31 13:19 | disposition home or self-care (01) ==
LOC: ER 10:09
DX: L03.113 Cellulitis of right upper limb (principal); J40 Bronchitis, not specified as acute or chronic; B37.2 Candidiasis of skin and nail; I10 Essential (primary) hypertension; E11.9 Type 2 diabetes mellitus without complications; E78.5 Hyperlipidemia, unspecified; J44.9 Chronic obstructive pulmonary disease, unspecified; Z87.01 Personal history of pneumonia (recurrent); Z79.899 Other long term (current) drug therapy
CPT/HCPCS: 71046; 93005; 99283

== ENCOUNTER 2018-05-10 16:38 | Emergency (ER) | payer MEDICARE, MEDICAID ==
[~2018-05-10] VITALS: Ht 165.1 cm; Wt 82.0 kg
[~2018-05-10 16:38] MED LIST changes: +MYCOL30CR TP
--- NOTE | 2018-05-10 17:31 | NUR ---
URINE SENT TO THE LAB.
[2018-05-10 17:42] LABS: CLARITY,URINE CLEAR (Clear); COLOR,URINE STRAW (Yellow); GLUCOSE, URINE NEGATIVE (Neg); KETONES,URINE NEGATIVE (Neg); LEUKOCYTE ESTERASE ,URINE TRACE (Neg); NITRITES, URINE NEGATIVE (Neg); OCCULT BLOOD,URINE NEGATIVE (Neg); PROTEIN,URINE NEGATIVE (Neg); UROBILINOGEN,URINE 0.2 E.U/dL (0.2-1.0)
[2018-05-10 17:43] LABS: UA COLLECTION TYPE STRAIGHT CATH
[2018-05-10 17:46] LABS: BASOPHILS % (AUTO) 0.3 % (0-1); EOSINOPHILS # (AUTO) 0.1 X10'3 (0-0.9); EOSINOPHILS % (AUTO) 1.1 % (0-6); HEMATOCRIT 37.9 % (35.0-45.0); HEMOGLOBIN 12.5 g/dl (12.0-16.0); LYMPHOCYTES # (AUTO) 0.7 X10'3 (1.1-4.8); MEAN CORPUSCULAR HEMOGLOBIN 27.2 PG (27.0-31.0); MEAN CORPUSCULAR VOLUME 82.2 FL (78-98); MEAN PLATELET VOLUME 7.3 FL (7.4-10.4); MONOCYTES # (AUTO) 0.8 X10'3 (0-0.9); MONOCYTES % (AUTO) 12.2 % (2-12); NEUTROPHILS # (AUTO) 4.9 X10'3 (1.8-7.7); NEUTROPHILS % (AUTO) 75.4 % (42-75); PLATELET COUNT 271 X10'3 (140-440); RED BLOOD COUNT 4.61 X10'6 (4.20-5.60); WHITE BLOOD COUNT 6.4 X10'3 (4.5-11.0)
[2018-05-10 17:48] LABS: BACTERIA,URINE 4+ /HPF (Neg); RBC,URINE NONE SEEN /HPF (0-2); SQUAMOUS EPITHELIAL CELL,UR FEW /LPF (FEW); WBC CLUMPS,URINE FEW /HPF (NEGATIVE); WBC,URINE 20-30 /HPF (0-4)
[2018-05-10] MEDS ORDERED: morphine 4 MG/ML inj SYRINge IV ONE (17:50)
[2018-05-10] MEDS ORDERED: ondansetron/PF 4mg/2ml inj IV ONE (17:50)
[2018-05-10] MEDS ORDERED: CefTRIAXone/D5W-Rocephin 1gm 50 ML IV ONE (17:55)
[2018-05-10 18:06] LABS: ALANINE AMINOTRANSFERASE 19 U/L (12-78); ALBUMIN/GLOBULIN RATIO 1.3 (1.1-1.5); ALKALINE PHOSPHATASE 58 IU/L (46-116); ANION GAP 12 (8-16); ASPARTATE AMINO TRANSFERASE 18 U/L (10-37); BILIRUBIN,TOTAL 0.3 MG/DL (0.1-1.0); BLOOD UREA NITROGEN 20 MG/DL (7-18); BUN/CREATININE RATIO 22.5 (6.6-38.0); CALCIUM 8.9 MG/DL (8.5-10.1); CHLORIDE 101 MMOL/L (99-107); CREATININE 0.89 MG/DL (0.40-0.90); GLUCOSE 95 MG/DL (70-104); POTASSIUM 4.2 MMOL/L (3.5-5.1); SODIUM 139 MMOL/L (135-145); TOTAL PROTEIN 7.2 G/DL (6.4-8.2); eGFR 63 ML/MIN
[2018-05-10 18:21] LABS: MAGNESIUM 1.5 MG/DL (1.5-2.4)
--- NOTE | 2018-05-10 19:02 | NUR ---
Discussed pt's continued nausea w/ Dr Rivas; new orders received for Compazine
[2018-05-10] MEDS ORDERED: proCHLORperazine 10 MG/2 ml inj IM ONE (19:05)
[2018-05-10] MEDS ORDERED: LEVO750T21 PO (19:40)
[2018-05-10] MEDS ORDERED: ACET-3067 PO (19:40)
[2018-05-10 19:51] VITALS: BP 155/69
== END 2018-05-10 19:53 | disposition home or self-care (01) ==
LOC: ER 16:39
DX: J40 Bronchitis, not specified as acute or chronic (principal); N39.0 Urinary tract infection, site not specified; I10 Essential (primary) hypertension; J44.9 Chronic obstructive pulmonary disease, unspecified; Z79.84 Long term (current) use of oral hypoglycemic drugs; Z79.899 Other long term (current) drug therapy; Z87.891 Personal history of nicotine dependence
CPT/HCPCS: 36415; 71046; 80053; 81001; 83605; 83735; 84484; 85025; 87040; 87077; 87088; 87186; 96365; 96372; 96375; 99284; J0696; J0780; J2270; J2405

== ENCOUNTER 2018-12-01 09:47 | Emergency (ER) | payer MEDICARE, MEDICAID ==
[~2018-12-01] VITALS: Ht 167.6 cm; Wt 90.0 kg
[2018-12-01 10:08] VITALS: BP 165/72
[2018-12-01] MEDS ORDERED: CLOT15CR4 TOP (12:27)
[2018-12-01] MEDS ORDERED: FLUC150T66 PO (12:27)
== END 2018-12-01 12:34 | disposition home or self-care (01) ==
LOC: ER 09:48
DX: B37.2 Candidiasis of skin and nail (principal); I10 Essential (primary) hypertension; J44.9 Chronic obstructive pulmonary disease, unspecified; Z79.84 Long term (current) use of oral hypoglycemic drugs; Z79.899 Other long term (current) drug therapy
CPT/HCPCS: 99283

== ENCOUNTER 2019-12-22 13:37 | Emergency (ER) | payer MEDICARE, MEDICAID ==
[~2019-12-22] VITALS: Ht 165.1 cm; Wt 86.4 kg
[~2019-12-22 13:37] MED LIST changes: +CLOT15CR4 TOP
[2019-12-22] MEDS ORDERED: HYDROcodone/acetaminophen 5mg/325mg tablet PO ONE (14:45)
[2019-12-22] MEDS ORDERED: HYDR-4383 PO (16:04)
[2019-12-22 16:32] VITALS: BP 145/74
== END 2019-12-22 16:33 | disposition home or self-care (01) ==
LOC: ER 13:38
DX: G89.29 Other chronic pain (principal); M25.552 Pain in left hip; M19.90 Unspecified osteoarthritis, unspecified site; I10 Essential (primary) hypertension; R53.1 Weakness; J44.9 Chronic obstructive pulmonary disease, unspecified; Z87.01 Personal history of pneumonia (recurrent); Z79.2 Long term (current) use of antibiotics; Z79.899 Other long term (current) drug therapy
CPT/HCPCS: 72192; 73502; 99284

== ENCOUNTER 2020-10-05 14:45 | Emergency (ER) | payer MEDICARE, MEDICAID ==
[~2020-10-05] VITALS: Ht 165.1 cm; Wt 67.3 kg
[~2020-10-05 14:45] MED LIST changes: +HYDR-4383 PO
[2020-10-05 15:17] LABS: BASOPHILS % (AUTO) 0.4 % (0-1); EOSINOPHILS % (AUTO) 0.2 % (0-6); HEMATOCRIT 37.2 % (35.0-45.0); HEMOGLOBIN 12.3 g/dl (12.0-16.0); LYMPHOCYTES # (AUTO) 1.2 X10'3 (1.1-4.8); LYMPHOCYTES % (AUTO) 19.9 % (21-51); MEAN CORPUSCULAR HEMOGLOBIN 28.3 PG (27.0-31.0); MEAN CORPUSCULAR HGB CONC 33.1 g/dL (33.0-36.5); MEAN CORPUSCULAR VOLUME 85.4 FL (78-98); MEAN PLATELET VOLUME 7.1 FL (7.4-10.4); MONOCYTES # (AUTO) 0.6 X10'3 (0-0.9); MONOCYTES % (AUTO) 9.4 % (2-12); NEUTROPHILS # (AUTO) 4.4 X10'3 (1.8-7.7); NEUTROPHILS % (AUTO) 70.1 % (42-75); PLATELET COUNT 297 X10'3 (140-440); RED BLOOD COUNT 4.35 X10'6 (4.20-5.60); RED CELL DISTRIBUTION WIDTH 12.9 % (11.5-14.5); WHITE BLOOD COUNT 6.2 X10'3 (4.5-11.0)
[2020-10-05 15:40] LABS: ALANINE AMINOTRANSFERASE 11 U/L (12-78); ALBUMIN 3.9 G/DL (3.4-5.0); ALBUMIN/GLOBULIN RATIO 1.2 (1.1-1.5); ALKALINE PHOSPHATASE 50 IU/L (46-116); ANION GAP 9 (8-16); ASPARTATE AMINO TRANSFERASE 18 U/L (10-37); BILIRUBIN,TOTAL 0.5 MG/DL (0.1-1.0); BLOOD UREA NITROGEN 41 MG/DL (7-18); BUN/CREATININE RATIO 25.3 (6.6-38.0); CHLORIDE 105 MMOL/L (99-107); CREATININE 1.62 MG/DL (0.40-0.90); GLUCOSE 103 MG/DL (70-104); POTASSIUM 3.6 MMOL/L (3.5-5.1); SODIUM 143 MMOL/L (135-145); TOTAL PROTEIN 7.2 G/DL (6.4-8.2); eGFR 31 ML/MIN
--- NOTE | 2020-10-05 16:43 | NUR ---
Orthostats completed, patient was barely able to stand for "standing" portion of testing. Attempt gait test after orthostat vitals, patient unable at this due to lower back/leg pain. PA/RN made aware.
[2020-10-05] MEDS ORDERED: cloNIDine 0.1 mg tablet PO ONE (16:45)
[2020-10-05] MEDS ORDERED: oxyCODONE/APAP 10/325mg tablet PO ONE (17:15)
[2020-10-05 17:33] VITALS: BP 193/99
[2020-10-05 18:08] LABS: CLARITY,URINE CLOUDY (Clear); COLOR,URINE YELLOW (Yellow); GLUCOSE, URINE NEGATIVE (Neg); KETONES,URINE NEGATIVE (Neg); LEUKOCYTE ESTERASE ,URINE MODERATE (Neg); NITRITES, URINE POSITIVE (Neg); OCCULT BLOOD,URINE NEGATIVE (Neg); PH,URINE 5.5 (4.8-8.0); PROTEIN,URINE NEGATIVE (Neg); UROBILINOGEN,URINE 0.2 E.U/dL (0.2-1.0)
[2020-10-05 18:09] LABS: UA COLLECTION TYPE STRAIGHT CATH
[2020-10-05 18:16] LABS: WBC,URINE 50-100 /HPF (0-4)
[2020-10-05 18:17] LABS: BACTERIA,URINE 4+ /HPF (Neg); RBC,URINE NONE SEEN /HPF (0-2); SQUAMOUS EPITHELIAL CELL,UR FEW /LPF (FEW); WBC CLUMPS,URINE MODERATE /HPF (NEGATIVE)
[2020-10-05] MEDS ORDERED: CEPH250T PO (18:26)
== END 2020-10-05 18:52 | disposition home or self-care (01) ==
LOC: ER 14:46
DX: N39.0 Urinary tract infection, site not specified (principal); R42 Dizziness and giddiness; E86.0 Dehydration; I10 Essential (primary) hypertension; J44.9 Chronic obstructive pulmonary disease, unspecified; Z87.01 Personal history of pneumonia (recurrent); Z79.2 Long term (current) use of antibiotics; Z79.899 Other long term (current) drug therapy
CPT/HCPCS: 36415; 71045; 80053; 81001; 83880; 84484; 85025; 87077; 87088; 87186; 93005; 99285

== ENCOUNTER 2021-02-06 10:25 | Emergency (ER) | payer MEDICARE, MEDICAID ==
[~2021-02-06] VITALS: Ht 165.1 cm; Wt 62.3 kg
--- NOTE | 2021-02-06 10:55 | NUR ---
ELECTRONICS TECHNICIAN INFORMED OF PT VS'S, PT TO RECEIVE NEXT AVAILABLE ROOM
[2021-02-06 12:24] LABS: BASOPHILS % (AUTO) 0.3 % (0-1); EOSINOPHILS % (AUTO) 0.2 % (0-6); HEMATOCRIT 35.6 % (35.0-45.0); HEMOGLOBIN 12.2 g/dl (12.0-16.0); LYMPHOCYTES # (AUTO) 1.1 X10'3 (1.1-4.8); LYMPHOCYTES % (AUTO) 24.5 % (21-51); MEAN CORPUSCULAR HEMOGLOBIN 28.4 PG (27.0-31.0); MEAN CORPUSCULAR HGB CONC 34.3 g/dL (33.0-36.5); MEAN CORPUSCULAR VOLUME 82.9 FL (78-98); MONOCYTES # (AUTO) 0.4 X10'3 (0-0.9); MONOCYTES % (AUTO) 8.4 % (2-12); NEUTROPHILS # (AUTO) 2.9 X10'3 (1.8-7.7); NEUTROPHILS % (AUTO) 66.6 % (42-75); PLATELET COUNT 292 X10'3 (140-440); RED CELL DISTRIBUTION WIDTH 13.3 % (11.5-14.5); WHITE BLOOD COUNT 4.4 X10'3 (4.5-11.0)
[2021-02-06] MEDS ORDERED: morphine 4 MG/ML inj SYRINge IV ONE (12:30)
[2021-02-06] MEDS ORDERED: normal saline 1000ml 1,000 ML IV ONE (12:30)
[2021-02-06] MEDS ORDERED: ondansetron/PF 4mg/2ml inj IV ONE (12:30)
[2021-02-06 12:40] LABS: ALANINE AMINOTRANSFERASE 7 U/L (12-78); ALBUMIN 3.3 G/DL (3.4-5.0); ALBUMIN/GLOBULIN RATIO 0.8 (1.1-1.5); ALKALINE PHOSPHATASE 46 IU/L (46-116); ANION GAP 13 (8-16); ASPARTATE AMINO TRANSFERASE 16 U/L (10-37); BILIRUBIN,TOTAL 0.5 MG/DL (0.1-1.0); BLOOD UREA NITROGEN 22 MG/DL (7-18); BUN/CREATININE RATIO 17.7 (6.6-38.0); CALCIUM 8.7 MG/DL (8.5-10.1); CHLORIDE 104 MMOL/L (99-107); CREATININE 1.24 MG/DL (0.40-0.90); GLUCOSE 114 MG/DL (70-104); LIPASE 199 U/L (73-393); POTASSIUM 3.4 MMOL/L (3.5-5.1); SODIUM 143 MMOL/L (135-145); TOTAL CARBON DIOXIDE 25.7 MMOL/L (24-32); TOTAL PROTEIN 7.3 G/DL (6.4-8.2); eGFR 42 ML/MIN
[2021-02-06] MEDS ORDERED: iohexol 300mg/ml 100ml inj. ONE (13:36)
[2021-02-06] MEDS ORDERED: MESSAGE TO NURSING PO SCH (14:00)
[2021-02-06 14:56] LABS: CLARITY,URINE SLIGHTLY CLOUDY (Clear); COLOR,URINE YELLOW (Yellow); UA COLLECTION TYPE NON-SPECIFIED
[2021-02-06 14:57] LABS: GLUCOSE, URINE NEGATIVE (Neg); KETONES,URINE Trace mg/dl (Neg); LEUKOCYTE ESTERASE ,URINE NEGATIVE (Neg); NITRITES, URINE NEGATIVE (Neg); OCCULT BLOOD,URINE NEGATIVE (Neg); PH,URINE 6.5 (4.8-8.0); PROTEIN,URINE NEGATIVE (Neg); UROBILINOGEN,URINE 0.2 E.U/dL (0.2-1.0)
[2021-02-06 15:05] LABS: BACTERIA,URINE FEW /HPF (Neg); HYALINE CASTS 0-3 /LPF (NEGATIVE); RBC,URINE 0-2 /HPF (0-2); SQUAMOUS EPITHELIAL CELL,UR FEW /LPF (FEW); WBC,URINE 0-4 /HPF (0-4)
[2021-02-06 17:50] LABS: C-REACTIVE PROTEIN 1.54 MG/DL (0.0-0.5)
[2021-02-06] MEDS ORDERED: HYDR-3965 PO (21:48)
[2021-02-06] MEDS ORDERED: ONDA4TAB6 PO (21:48)
[2021-02-06 22:38] VITALS: BP 170/111
== END 2021-02-06 22:41 | disposition home or self-care (01) ==
LOC: ER 10:25
DX: S22.070A Wedge compression fracture of T9-T10 vertebra, initial encounter for closed fracture (principal); M48.061 Spinal stenosis, lumbar region without neurogenic claudication; K43.9 Ventral hernia without obstruction or gangrene; I10 Essential (primary) hypertension; J44.9 Chronic obstructive pulmonary disease, unspecified; Z87.01 Personal history of pneumonia (recurrent); Z79.899 Other long term (current) drug therapy; X58.XXXA Exposure to other specified factors, initial encounter; Y93.89 Activity, other specified; Y92.89 Other specified places as the place of occurrence of the external cause; Y99.8 Other external cause status
CPT/HCPCS: 36415; 72157; 72158; 74177; 80053; 81001; 83605; 83690; 84145; 85025; 85651; 86140; 87040; 96361; 96374; 96375; 99285; J2270; J2405; J7030; Q9967

== ENCOUNTER 2021-05-02 11:50 | Day surgery (SDC) | payer MEDICARE, MEDICAID ==
[2021-04-25 16:23] LABS: BASOPHILS % (AUTO) 0.6 % (0-1); EOSINOPHILS % (AUTO) 0.8 % (0-6); LYMPHOCYTES # (AUTO) 1.2 X10'3 (1.1-4.8); LYMPHOCYTES % (AUTO) 25.5 % (21-51); MEAN CORPUSCULAR HGB CONC 32.9 g/dL (33.0-36.5); MEAN CORPUSCULAR VOLUME 82.3 FL (78-98); MEAN PLATELET VOLUME 7.2 FL (7.4-10.4); MONOCYTES # (AUTO) 0.4 X10'3 (0-0.9); MONOCYTES % (AUTO) 8.2 % (2-12); NEUTROPHILS % (AUTO) 64.9 % (42-75); PRE OP HEMATOCRIT 34.4 % (35.0-45.0); PRE OP HEMOGLOBIN 11.3 g/dL (12.0-16.0); PRE OP PLATELET COUNT 333 X10'3 (140-440); RED BLOOD COUNT 4.18 X10'6 (4.20-5.60); RED CELL DISTRIBUTION WIDTH 13.8 % (11.5-14.5)
[2021-04-25 16:29] LABS: ALBUMIN 3.9 G/DL (3.4-5.0); ALBUMIN/GLOBULIN RATIO 1.3 (1.1-1.5); ALKALINE PHOSPHATASE 48 IU/L (46-116); BLOOD UREA NITROGEN 28 MG/DL (7-18); BUN/CREATININE RATIO 23.3 (6.6-38.0); CALCIUM 9.6 MG/DL (8.5-10.1); CHLORIDE 103 MMOL/L (99-107); PRE OP ALT 10 U/L (30-65); PRE OP ANION GAP 11 (8-16); PRE OP AST 17 U/L (10-37); PRE OP BILIRUB, TOTAL 0.5 MG/DL (0.0-1.0); PRE OP GLUCOSE 114 MG/DL (70-104); PRE OP POTASSIUM 3.9 MMOL/L (3.4-5.1); PRE OP SODIUM 141 MMOL/L (135-145); TOTAL CARBON DIOXIDE 26.9 MMOL/L (24-32); eGFR 44 ML/MIN
[2021-05-02] VITALS (8 sets, daily range): BP systolic 131–193; BP diastolic 62–113
[~2021-05-02] VITALS: Ht 165.1 cm; Wt 60.8 kg
[~2021-05-02 11:50] MED LIST changes: -AMLO5TAB4 PO; -ATOR10TA PO; -CLOT15CR4 TOP; -ENAL5TAB77 PO; -FLUT1DIS4 INH; -HYDR-4383 PO; -LORA10TA65 PO; +METF-1203 PO; -METF500T PO; -MYCOL30CR TP; +SERT-433 PO; -SERT50TA PO; +cefazolin/dext.iso 2gm/50ml IV ONE; +famotidine 20mg tablet PO ONE; +ringers solution, lacted 1,000 ML IV SCH
[2021-05-02] MEDS ORDERED: BUPIVACAINE liposomal/PF 13.3 MG/ML vial IM ONE (14:23)
[2021-05-02] MEDS ORDERED: LIDOcaine 1% 30ml preserv. free vial ONE (14:23)
[2021-05-02] MEDS ORDERED: BUPIVAcaine/PF 2.5mg/ml (0.25%) 10ml vial ONE ×2 (14:23→14:25)
[2021-05-02] MEDS ORDERED: BUPIVAcaine/PF 2.5 mg/ml (0.25%) 30ml vial ONE (14:23)
[2021-05-02] MEDS ORDERED: fentaNYL/PF 50MCG/1 ML 2ML syringe ONE ×2 (14:53→17:03)
[2021-05-02] MEDS ORDERED: midazolam 1 mg/ML 2ml injection ONE (14:53)
[2021-05-02] MEDS ORDERED: LIDOcaine 2% (20mg/ml) 5ml vial ONE (15:48)
[2021-05-02] MEDS ORDERED: propofol inj 20 ML IV ONE (15:48)
[2021-05-02] MEDS ORDERED: ondansetron/PF 4mg/2ml inj ONE (15:48)
[2021-05-02] MEDS ORDERED: rocuronium 10mg/ml inj IV ONE (15:49)
--- NOTE | 2021-05-02 16:13 | NUR ---
Received from OR via , accompanied by Anesthesiologist DR MIRANDA and report given by Anesthesiolgist. AWAKENS TO VOICE. VITALS STABLE. DRESSINGS DI. IVAN PAIN. ABD SOFT.
[2021-05-02] MEDS ORDERED: oxyCODONE/APAP 5-325mg tablet PO PRN (16:15)
[2021-05-02] MEDS ORDERED: hydrALAZINE 20mg/ml inj. IV PRN (16:50)
[2021-05-02] MEDS ORDERED: ondansetron/PF 4mg/2ml inj IV PRN (16:50)
[2021-05-02] MEDS ORDERED: fentaNYL/PF 50MCG/1 ML 2ML syringe IV PRN (16:50)
[2021-05-02] MEDS ORDERED: ringers solution, lacted 1,000 ML IV SCH (16:50)
[2021-05-02] MEDS ORDERED: morphine 2 MG/ML inj. syringe IV PRN (16:50)
[2021-05-02] MEDS ORDERED: labetalol 20mg/4ml (5mg/ml) syringe IV PRN (16:50)
[2021-05-02] MEDS ORDERED: morphine 4 MG/ML inj SYRINge IV PRN (16:50)
--- NOTE | 2021-05-02 17:33 | NUR ---
AWAKE AND ORIENTED. VITALS STABLE. DRESSINGS DI. STATES PAIN IMPROVING. HOME WITH HER GRAND DAUGHTER AT THIS TIME.
[2021-05-02] MEDS ORDERED: acetaminophen 1,000mg/100ml IV 100 ML IV SCH (20:00)
== END 2021-05-02 17:33 | disposition home or self-care (01) ==
LOC: PAS 11:50
PROVIDERS: ATTEND Surgery
DX: K43.6 Other and unspecified ventral hernia with obstruction, without gangrene (principal); E11.9 Type 2 diabetes mellitus without complications; I10 Essential (primary) hypertension; F41.9 Anxiety disorder, unspecified; J44.9 Chronic obstructive pulmonary disease, unspecified; Z20.822 Contact with and (suspected) exposure to COVID-19; Z79.899 Other long term (current) drug therapy; Z79.84 Long term (current) use of oral hypoglycemic drugs; Z98.890 Other specified postprocedural states; Z98.51 Tubal ligation status; Z87.891 Personal history of nicotine dependence; Z72.89 Other problems related to lifestyle; Z82.49 Family history of ischemic heart disease and other diseases of the circulatory system; Z82.3 Family history of stroke; Z83.3 Family history of diabetes mellitus; Z82.61 Family history of arthritis
CPT/HCPCS: 36415; 49653; 64488; 80053; 82948; 85025; 93005; C1781; C9290; J0690; J2250; J2405; J2704; J3010; J3490; J7030; J7120; U0003; U0005; Z7506; Z7508; Z7512; A4215; A4618

== ENCOUNTER 2021-09-15 16:40 | Emergency (ER) | payer MEDICARE, MEDICAID ==
[~2021-09-15] VITALS: Ht 165.1 cm; Wt 56.8 kg
[~2021-09-15 16:40] MED LIST changes: -cefazolin/dext.iso 2gm/50ml IV ONE; -famotidine 20mg tablet PO ONE; -ringers solution, lacted 1,000 ML IV SCH
[2021-09-15] MEDS ORDERED: methylPREDNISolone sod succ 125mg/2ml vial IV ONE (17:15)
[2021-09-15] MEDS ORDERED: albuterol 2.5 MG/3 ML nebule NEB ONE (17:15)
[2021-09-15 17:52] LABS: BASOPHILS % (AUTO) 0.5 % (0-1); EOSINOPHILS # (AUTO) 0.1 X10'3 (0-0.9); EOSINOPHILS % (AUTO) 1.6 % (0-6); HEMOGLOBIN 11.5 g/dl (12.0-16.0); LYMPHOCYTES # (AUTO) 1.6 X10'3 (1.1-4.8); LYMPHOCYTES % (AUTO) 29.4 % (21-51); MEAN CORPUSCULAR HEMOGLOBIN 28.4 PG (27.0-31.0); MEAN CORPUSCULAR HGB CONC 33.7 g/dL (33.0-36.5); MEAN CORPUSCULAR VOLUME 84.2 FL (78-98); MEAN PLATELET VOLUME 6.5 FL (7.4-10.4); MONOCYTES # (AUTO) 0.5 X10'3 (0-0.9); MONOCYTES % (AUTO) 9.3 % (2-12); NEUTROPHILS # (AUTO) 3.2 X10'3 (1.8-7.7); NEUTROPHILS % (AUTO) 59.2 % (42-75); PLATELET COUNT 278 X10'3 (140-440); RED BLOOD COUNT 4.04 X10'6 (4.20-5.60); RED CELL DISTRIBUTION WIDTH 14.8 % (11.5-14.5); WHITE BLOOD COUNT 5.3 X10'3 (4.5-11.0)
--- NOTE | 2021-09-15 17:57 | NUR ---
BEDBUG FOUND ON PT'S GURNEY PILLOW. EVS CALLED AND STICKY MAT PLACED IN FRONT OF DOOR. PT NOTIFIED OF THE SITUATION; CALL LIGHT TIED TO [facility] AND DOOR CLOSED.
[2021-09-15 18:14] LABS: ALANINE AMINOTRANSFERASE 11 U/L (12-78); ALBUMIN 3.8 G/DL (3.4-5.0); ALBUMIN/GLOBULIN RATIO 1.2 (1.1-1.5); ALKALINE PHOSPHATASE 51 IU/L (46-116); ANION GAP 10 (8-16); ASPARTATE AMINO TRANSFERASE 14 U/L (10-37); BILIRUBIN,TOTAL 0.2 MG/DL (0.1-1.0); BLOOD UREA NITROGEN 25 MG/DL (7-18); BUN/CREATININE RATIO 19.7 (6.6-38.0); CALCIUM 9.3 MG/DL (8.5-10.1); CHLORIDE 104 MMOL/L (99-107); CREATININE 1.27 MG/DL (0.40-0.90); GLUCOSE 89 MG/DL (70-104); POTASSIUM 4.3 MMOL/L (3.5-5.1); SODIUM 142 MMOL/L (135-145); TOTAL CARBON DIOXIDE 27.6 MMOL/L (24-32); TOTAL PROTEIN 6.9 G/DL (6.4-8.2); eGFR 41 ML/MIN
[2021-09-15] MEDS ORDERED: DOXY100C77 PO (19:33)
[2021-09-15] MEDS ORDERED: PRED50TA PO (19:33)
[2021-09-15 20:26] VITALS: BP 176/88
== END 2021-09-15 20:28 | disposition home or self-care (01) ==
LOC: ER 16:41
DX: J44.1 Chronic obstructive pulmonary disease with (acute) exacerbation (principal); B88.8 Other specified infestations; I10 Essential (primary) hypertension; Z87.01 Personal history of pneumonia (recurrent); G89.29 Other chronic pain; Z79.899 Other long term (current) drug therapy
CPT/HCPCS: 36415; 71045; 80053; 83880; 85025; 93005; 94640; 96374; 99285; J2930

== ENCOUNTER 2022-04-17 11:49 | Emergency (ER) | payer MEDICARE, MEDICAID ==
[~2022-04-17] VITALS: Ht 165.1 cm; Wt 59.1 kg
[~2022-04-17 11:49] MED LIST changes: +PRED50TA PO
[2022-04-17 12:20] LABS: BASOPHILS % (AUTO) 0.6 % (0-1); EOSINOPHILS % (AUTO) 0.3 % (0-6); HEMATOCRIT 37.4 % (35.0-45.0); HEMOGLOBIN 11.9 g/dl (12.0-16.0); LYMPHOCYTES % (AUTO) 39.6 % (21-51); MEAN CORPUSCULAR HEMOGLOBIN 26.9 PG (27.0-31.0); MEAN CORPUSCULAR HGB CONC 31.7 g/dL (33.0-36.5); MEAN CORPUSCULAR VOLUME 84.8 FL (78-98); MEAN PLATELET VOLUME 6.4 FL (7.4-10.4); MONOCYTES # (AUTO) 0.3 X10'3 (0-0.9); MONOCYTES % (AUTO) 11.8 % (2-12); NEUTROPHILS # (AUTO) 1.2 X10'3 (1.8-7.7); NEUTROPHILS % (AUTO) 47.7 % (42-75); PLATELET COUNT 136 X10'3 (140-440); RED BLOOD COUNT 4.41 X10'6 (4.20-5.60); RED CELL DISTRIBUTION WIDTH 17.7 % (11.5-14.5); WHITE BLOOD COUNT 2.5 X10'3 (4.5-11.0)
[2022-04-17 12:32] LABS: APTT 27 SECONDS (22-32)
[2022-04-17 12:34] LABS: ALANINE AMINOTRANSFERASE 23 U/L (12-78); ALBUMIN 3.4 G/DL (3.4-5.0); ALBUMIN/GLOBULIN RATIO 1.1 (1.1-1.5); ALKALINE PHOSPHATASE 53 IU/L (46-116); ANION GAP 10 (8-16); ASPARTATE AMINO TRANSFERASE 21 U/L (10-37); BILIRUBIN,TOTAL 0.3 MG/DL (0.1-1.0); BLOOD UREA NITROGEN 27 MG/DL (7-18); CALCIUM 8.8 MG/DL (8.5-10.1); CHLORIDE 103 MMOL/L (99-107); CREATININE 1.08 MG/DL (0.40-0.90); GLUCOSE 92 MG/DL (70-104); SODIUM 136 MMOL/L (135-145); TOTAL CARBON DIOXIDE 22.9 MMOL/L (24-32); TOTAL PROTEIN 6.4 G/DL (6.4-8.2); eGFR 50 ML/MIN
[2022-04-17 13:14] LABS: ANISOCYTOSIS 1+; ELLIPTOCYTES 1+; PLATELET ESTIMATE DECREASED; SCHISTOCYTES FEW; TOTAL CELLS COUNTED 100
[2022-04-17] MEDS ORDERED: iohexol 350MG/ML 100ml bottle IV ONE (14:47)
[2022-04-17] MEDS ORDERED: iohexol 300mg/ml 100ml inj. ONE (15:36)
[2022-04-17] MEDS: MESSAGE TO NURSING PO NR ×2 (15:49→18:37)
[2022-04-17] MEDS ORDERED: acetaminophen 325mg tablet PO ONE (15:55)
[2022-04-17] MEDS ORDERED: ibuprofen tablet 400 MG TABLET PO STA (18:12)
--- NOTE | 2022-04-17 19:30 | NUR ---
Per patient request, family called for ride home.
[2022-04-17 20:04] VITALS: BP 144/72
== END 2022-04-17 20:07 | disposition home or self-care (01) ==
LOC: ER 11:50
DX: R53.1 Weakness (principal); Z20.822 Contact with and (suspected) exposure to COVID-19; R06.02 Shortness of breath; R51.9 Headache, unspecified; I48.91 Unspecified atrial fibrillation; I10 Essential (primary) hypertension; J44.9 Chronic obstructive pulmonary disease, unspecified; G89.29 Other chronic pain; Z87.01 Personal history of pneumonia (recurrent); Z79.899 Other long term (current) drug therapy
CPT/HCPCS: 36415; 70450; 70496; 70498; 71045; 80053; 83880; 84484; 85007; 85025; 85610; 85730; 87635; 93005; 99285; C9803; J3490; Q9967

== ENCOUNTER 2022-09-10 12:29 | Emergency (ER) | payer MEDICARE, MEDICAID ==
[~2022-09-10] VITALS: Ht 165.1 cm; Wt 56.8 kg
[~2022-09-10 12:29] MED LIST changes: +ALBU18HF2 PO; +APIX5TAB3 PO; +METO25TA6 PO; -PRED50TA PO; +TIOT18CA3 PO
[2022-09-10] MEDS ORDERED: methylPREDNISolone sod succ 125mg/2ml vial IV ONE (13:05)
[2022-09-10] MEDS ORDERED: CefTRIAXone 2gm/D5W 50ml BAG 50 ML IV ONE (13:05)
[2022-09-10] MEDS ORDERED: ipratropium/albuterol 3ml nebule NEB ONE (13:05)
[2022-09-10 13:25] LABS: BASOPHILS % (AUTO) 0.3 % (0-1); EOSINOPHILS % (AUTO) 0.1 % (0-6); HEMATOCRIT 29.2 % (35.0-45.0); HEMOGLOBIN 9.3 g/dl (12.0-16.0); LYMPHOCYTES # (AUTO) 1.2 X10'3 (1.1-4.8); MEAN CORPUSCULAR HGB CONC 31.9 g/dL (33.0-36.5); MEAN CORPUSCULAR VOLUME 81.5 FL (78-98); MONOCYTES # (AUTO) 1.4 X10'3 (0-0.9); NEUTROPHILS # (AUTO) 6.6 X10'3 (1.8-7.7); NEUTROPHILS % (AUTO) 71.6 % (42-75); PLATELET COUNT 252 X10'3 (140-440); RED BLOOD COUNT 3.58 X10'6 (4.20-5.60); RED CELL DISTRIBUTION WIDTH 17.7 % (11.5-14.5); WHITE BLOOD COUNT 9.3 X10'3 (4.5-11.0)
[2022-09-10 13:42] LABS: ALANINE AMINOTRANSFERASE 6 U/L (12-78); ALBUMIN 2.6 G/DL (3.4-5.0); ALBUMIN/GLOBULIN RATIO 0.8 (1.1-1.5); ALKALINE PHOSPHATASE 54 IU/L (46-116); ANION GAP 7 (8-16); ASPARTATE AMINO TRANSFERASE 13 U/L (10-37); BILIRUBIN,TOTAL 0.3 MG/DL (0.1-1.0); BLOOD UREA NITROGEN 23 MG/DL (7-18); CALCIUM 8.4 MG/DL (8.5-10.1); CHLORIDE 103 MMOL/L (99-107); CREATININE 1.15 MG/DL (0.40-0.90); GLUCOSE 101 MG/DL (70-104); POTASSIUM 3.5 MMOL/L (3.5-5.1); SODIUM 137 MMOL/L (135-145); eGFR 46 ML/MIN
[2022-09-10] MEDS ORDERED: albuterol 2.5 MG/3 ML nebule CONTNEB ONE (14:30)
[2022-09-10] MEDS ORDERED: AZIT500T PO (14:36)
[2022-09-10] MEDS ORDERED: BUDE10.7 INH (14:36)
[2022-09-10] MEDS ORDERED: PRED20TA PO (14:36)
[2022-09-10] MEDS ORDERED: DOXY-11 PO (14:36)
[2022-09-10 15:18] VITALS: BP 150/75
== END 2022-09-10 16:36 | disposition home or self-care (01) ==
LOC: ER 12:30
DX: J45.901 Unspecified asthma with (acute) exacerbation (principal); I11.0 Hypertensive heart disease with heart failure; G89.29 Other chronic pain; M54.9 Dorsalgia, unspecified; Z79.899 Other long term (current) drug therapy
CPT/HCPCS: 71045; 80053; 84145; 85025; 93005; 94640; 94644; 96365; 96375; 99285; J0696; J2930; 94760

== ENCOUNTER 2022-10-08 13:43 | Emergency (ER) | payer MEDICARE, MEDICAID ==
[~2022-10-08] VITALS: Ht 165.1 cm; Wt 55.9 kg
[~2022-10-08 13:43] MED LIST changes: +BUDE10.7 INH
[2022-10-08 14:25] LABS: BASOPHILS % (AUTO) 0.5 % (0-1); EOSINOPHILS % (AUTO) 0.2 % (0-6); HEMATOCRIT 32.3 % (35.0-45.0); HEMOGLOBIN 10.4 g/dl (12.0-16.0); LYMPHOCYTES # (AUTO) 1.2 X10'3 (1.1-4.8); LYMPHOCYTES % (AUTO) 25.6 % (21-51); MEAN CORPUSCULAR HGB CONC 32.1 g/dL (33.0-36.5); MEAN CORPUSCULAR VOLUME 80.9 FL (78-98); MEAN PLATELET VOLUME 6.5 FL (7.4-10.4); MONOCYTES # (AUTO) 0.4 X10'3 (0-0.9); MONOCYTES % (AUTO) 8.7 % (2-12); PLATELET COUNT 296 X10'3 (140-440); RED BLOOD COUNT 3.99 X10'6 (4.20-5.60); RED CELL DISTRIBUTION WIDTH 19.2 % (11.5-14.5); WHITE BLOOD COUNT 4.6 X10'3 (4.5-11.0)
[2022-10-08 14:43] LABS: ANISOCYTOSIS 2+; PLATELET ESTIMATE NORMAL
[2022-10-08 14:44] LABS: ELLIPTOCYTES FEW
[2022-10-08 14:45] LABS: ALANINE AMINOTRANSFERASE 13 U/L (12-78); ALBUMIN 3.5 G/DL (3.4-5.0); ALBUMIN/GLOBULIN RATIO 1.2 (1.1-1.5); ALKALINE PHOSPHATASE 45 IU/L (46-116); ANION GAP 15 (8-16); ASPARTATE AMINO TRANSFERASE 19 U/L (10-37); BILIRUBIN,TOTAL 0.3 MG/DL (0.1-1.0); BLOOD UREA NITROGEN 22 MG/DL (7-18); BUN/CREATININE RATIO 17.3 (10.0-20.0); CALCIUM 8.7 MG/DL (8.5-10.1); CHLORIDE 107 MMOL/L (99-107); CREATININE 1.27 MG/DL (0.40-0.90); GLUCOSE 93 MG/DL (70-104); LIPASE 247 U/L (73-393); SODIUM 142 MMOL/L (135-145); TOTAL CARBON DIOXIDE 19.9 MMOL/L (24-32); TOTAL PROTEIN 6.4 G/DL (6.4-8.2); eGFR 41 ML/MIN
[2022-10-08 14:59] LABS: APTT 29 SECONDS (22-32)
[2022-10-08] MEDS ORDERED: normal saline 1000ml 1,000 ML IV ONE (15:00)
[2022-10-08] MEDS ORDERED: diphenhydrAMINE 50 mg/ml inj IV ONE (15:00)
[2022-10-08] MEDS ORDERED: proCHLORperazine 10 MG/2 ml inj IV ONE (15:00)
[2022-10-08] MEDS ORDERED: LORazepam 2 mg/ml vial IV ONE (15:55)
[2022-10-08 16:52] VITALS: BP 6/81
== END 2022-10-08 16:55 | disposition home or self-care (01) ==
LOC: ER 13:44
DX: R51.9 Headache, unspecified (principal); I11.0 Hypertensive heart disease with heart failure; I50.9 Heart failure, unspecified; J44.9 Chronic obstructive pulmonary disease, unspecified
CPT/HCPCS: 36415; 70450; 80053; 83690; 85008; 85025; 85610; 85730; 96374; 96375; 99285; J0780; J1200; J7030

== ENCOUNTER 2023-05-08 12:29 | Emergency (ER) | payer MEDICARE, MEDICAID ==
[~2023-05-08 12:29] MED LIST changes: +ATOR20TA66 PO; -BUDE10.7 INH; -METF-1203 PO; -TIOT18CA3 PO
== END 2023-05-08 13:22 | disposition left against medical advice (07) ==
LOC: ER 12:30
DX: R05.9 Cough, unspecified (principal); Z53.21 Procedure and treatment not carried out due to patient leaving prior to being seen by health care provider

== ENCOUNTER 2024-04-13 13:34 | Emergency (ER) | payer MEDICARE, MEDICAID ==
[~2024-04-13] VITALS: Ht 165.1 cm; Wt 60.9 kg
[~2024-04-13 13:34] MED LIST changes: -ATOR20TA66 PO
[2024-04-13] MEDS: dexamethasone sod phosphate 10mg/ml inj IM ONE (15:13)
[2024-04-13] MEDS: HYDROcodone/acetaminophen 10/325mg tab PO ONE (15:13)
[2024-04-13] MEDS ORDERED: PRED20TA PO (16:37)
[2024-04-13] MEDS ORDERED: HYDR-3965 PO (16:37)
[2024-04-13 16:51] VITALS: BP 148/90; PULSE 96; RESP 18; TEMP 97.9; O2SAT 97
== END 2024-04-13 16:52 | disposition home or self-care (01) ==
LOC: ER 13:35
DX: M54.50 Low back pain, unspecified (principal); I48.91 Unspecified atrial fibrillation; I11.0 Hypertensive heart disease with heart failure; I50.9 Heart failure, unspecified; J44.9 Chronic obstructive pulmonary disease, unspecified; G89.29 Other chronic pain; Z79.899 Other long term (current) drug therapy; Z86.718 Personal history of other venous thrombosis and embolism
CPT/HCPCS: 72100; 96372; 99283; J1100